=== PATIENT | female | born 1940 | race Caucasian/White ===

== ENCOUNTER 2025-02-21 11:36 | Inpatient (IN) | payer MEDICARE, MEDICAID, SELFPAY ==
[2025-02-21] VITALS (10 sets, daily range): BP systolic 109–156; BP diastolic 63–97; PULSE 58–99; RESP 14–90; TEMP 36.5–37.1; O2SAT 94–98; BMI 28.7
--- NOTE | 2025-02-21 11:39 | EKG_ITS ---
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
--- NOTE | 2025-02-21 11:49 | EDNOTE_ITS ---
<Statement entered by Dot Strickland MD - 03/09/25 17:41> I, Dot Strickland MD, have reviewed the history, exam, and assessment of the patient. I have evaluated the patient independently and agree with the plan of care documented by [ ]. All diagnostic studies were reviewed and discussed. I confirm the diagnosis as documented by the Resident. I was present during the Medical Decision Making for this patient. The patient's plan of care was created between myself and the Resident and consistent with our discussion of the patient's case. ED General RME/HPI General Chief complaint: Altered Mental Status Stated complaint: ALTERED Time Seen by Provider: 02/21/25 11:39 Arrival date/time: 02/21/25 11:36 Related Data Home Medications ?Medication ?Instructions ?Recorded ?Confirmed duloxetine 60 mg capsule,delayed 60 mg PO QDAY 2 02/28/22 release gabapentin 400 mg capsule 400 mg PO TID 02/02/2202/28 tizanidine 4 mg tablet 4 mg PO HS 02/02/22 02/28/22 Previous Rx's ?Medication ?Instructions ?Recorded ciprofloxacin HCl 500 mg tablet 500 mg PO BID #14 tabs 02/28/22 (Cipro) Allergies Allergy/AdvReac Type Severity Reaction Status Date / Time No Known Allergies Allergy Verified 01/14/21 18:26 ED Exam Narrative Physical exam: Physical Exam: GENERAL: Awake, answering some questions appropriately at times but appears to be debilitated and frail appearing HEENT: NC/AT. Dry mucosa. PERRLA/EOMI. CARDIO: Heart RRR, no obvious murmurs, no JVD. PULM: No coughing or visible SOB. Lungs CTA B/L. GI: Abdomen soft, NT/ND, +BS. SKIN/MSK/EXT: Tenderness to palpation on right and left lower extremity but no asymmetry, edema or erythema noted. No wounds/discoloration/rashes/edema/amputations noted. +Pedal pulses present B/L. NEURO: Oriented x2 (person, place but not purpose). Moves extremities x4, no focal neurologic deficits noted Course Quality Measures none Orders Category Date Time Status Bedside COVID-19 Antigen Test NOW Care 02/21/25 14:16 Active Bedside Influenza A&B Antigen Test NOW Care 02/21/25 14:17 Completed Bedside RSV Test NOW Care 02/21/25 14:16 Completed Senior User Experience Architect STAT Care 02/21/25 11:39 Active Continuous Pulse Oximetry STAT Care 02/21/25 11:39 Completed EKG (ED ONLY) *Do not use* NOW Care 02/21/25 11:39 Completed In and Out Catheter X1 Care 02/21/25 15:12 Completed In and Out Catheter X1PRN Care 02/21/25 11:39 Completed Insert IV NOW Care 02/21/25 11:39 Active Strict Intake and Output Routine Care 02/21/25 11:[address] head/brain wo con Stat Exams 02/21/25 16:18 Ordered CXRP [XR chest 1V portable] Stat Exams 02/21/25 13:14 Completed EKG (ED Only) Stat Exams 02/21/25 11:39 Draft ABG [Arterial Blood Gas] Stat Lab 02/21/25 16:19 Ordered Ammonia Stat Lab 02/21/25 11:57 Completed B-Type Natriuretic Peptide Stat Lab 02/21/25 11:57 Completed Blood Culture (Lab) Stat Lab 02/21/25 11:57 Received CBC Stat Lab 02/21/25 11:57 Completed Comprehensive Metabolic Panel Stat Lab 02/21/25 11:57 Completed LDH (Lactate Dehydrogenase) Stat Lab 02/21/25 11:57 Completed Lactate (Lactic Acid) Stat Lab 02/21/25 11:57 Completed Lipase Stat Lab 02/21/25 11:57 Completed Magnesium Stat Lab 02/21/25 11:57 Completed Partial Thromboplastin Time Stat Lab 02/21/25 11:57 Completed Phosphorous Stat Lab 02/21/25 11:57 Completed Procalcitonin Stat Lab 02/21/25 11:57 Completed Prothrombin Time with INR Stat Lab 02/21/25 11:57 Completed Troponin I Stat Lab 02/21/25 11:57 Completed Urinalysis, C/S if Indicated Stat Lab 02/21/25 12:15 Completed Urinalysis, C/S if Indicated Stat Lab 02/21/25 17:42 Received Lactulose Syrup [Enulose Syrup] Med 02/21/25 13:24 Discontinued 10 gm PO X1 ONE Oxygen Delivery NOW RT 02/21/25 11:39 Active Vital Signs Vital signs: Vital Signs Temperature 98.1 F 02/21/25 11:56 Pulse Rate 66 02/21/25 11:56 Respiratory Rate 20 02/21/25 11:56 Blood Pressure 153/97 H 02/21/25 11:56 Pulse Oximetry (%) 94 L 02/21/25 11:56 Oxygen Delivery Method Room Air 02/21/25 11:56 Discharge Plan Plan Patient Disposition: Xfer Skilled Nsg Fac (SNF) Prescriptions/Referrals Prescriptions/Med Rec: No Action tizanidine 4 mg tablet 4 mg PO HS Patient Comments: TAKE ONE TABLET BY MOUTH EVERY DAY AT BED TIME FOR MUSCLE SPASM gabapentin 400 mg capsule 400 mg PO TID Patient Comments: TAKE ONE CAPSULE BY MOUTH THREE TIMES DAILY duloxetine 60 mg capsule,delayed release(DR/EC) 60 mg PO QDAY Patient Comments: TAKE ONE CAPSULE BY MOUTH EVERY DAY ciprofloxacin HCl [Cipro] 500 mg tablet 500 mg PO BID Qty: 14 0RF Referrals: Marielle Albarado MD [Primary Care Provider] - In 1 week Problem List Clinical Impression: Altered mental status Patient/Caregiver Discharge Instructions Print Language: Maori Stand Alone Forms: Shira Award Info., Patient Portal Info Letter MDM Narrative MDM hospital course (for use when minimal MDM required): HPI: 84-year-old female with past medical history of critical access hospital [employer] [facility] ED ([phone]) coming from [place] [facility], chronic UTI, neuropathy, dementia not on any significant prescription medications for chronic medical problems per EMS presenting to the ER on 02/21 due to care profiler hand believing that she is looking worse than normal. Apparently patient started declining on Sunday 02/18 and has progressively worsened. Apparently she is normally alert oriented x 4 but she has become more drowsy and slow with her responses. Apparently, EMS providers state that her profiler hand believes that she is having another urinary tract infection. EMS stated that en route patient's vitals were stable other than mild bradycardia with a heart rate of 59, vitals were stable and bedside glucose was in the 160 range. On examination, please refer to the physical exam above; patient presents to the ER mildly hypertensive 153/97, heart rate of 66, respiratory rate of 20, afebrile satting 94 on room air. Pertinent lab findings included CBC without any concerning findings including no leukocytosis and no anemia. CMP did not show any overt electrolyte abnormalities, kidney function slightly reduced with CKD noted eGFR of 55, lactic acid of 1.8, mild elevation LFTs with AST 35, ALT 33 but bilirubin of 0.4 and alk phos of 73, troponin less than 0.020 and BNP of 24, lipase of 49. Initial urinalysis with clean-catch shows cloudy urine with proteinuria and hematuria but the sample is contaminated with squamous epithelial cells. EKG shows sinus bradycardia without any concerning ST changes and chest x-ray shows no lobar pneumonia. 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 SANYA Dong, DO PGY-2 Internal Medicine - GME Medication Administration(s) Medication Administration History Discontinued Medications Lactulose (Lactulose Syrup 20 Gm/30 Ml Udc) 10 gm PO X1 ONE; Protocol Stop: 02/21/25 13:25 Last Admin: 02/21/25 15:06 Dose: 10 gm Documented By: ESA
[2025-02-21 12:20] LABS: Lactate (Lactic Acid) 1.8 mMol/L (0.4-2.0)
[2025-02-21 12:23] LABS: Basophils # (Auto) 0.1 Thou/mm3 (0.0-0.2); Basophils % (Auto) 1 % (0-2.5); Eosinophils # (Auto) 0.0 Thou/mm3 (0.0-0.5); Eosinophils % (Auto) 0 % (0-10); Hematocrit 41.3 % (36.0-46.0); Hemoglobin 13.9 g/dL (12.0-16.0); Immature Granulocytes Auto 0.02 Thou/mm3 (0.00-0.00); Lymphocytes # (Auto) 1.5 Thou/mm3 (1.0-4.8); Lymphocytes % (Auto) 18 % (10-50); Mean Corpuscular HGB Conc 33.7 g/dl (31.0-37.0); Mean Corpuscular Hemoglobin 31.4 pg (25.0-35.0); Mean Corpuscular Volume 93 fL (80-100); Monocytes # (Auto) 0.3 Thou/mm3 (0.0-0.8); Monocytes % (Auto) 4 % (0-12); Neutrophils # (Auto) 6.6 Thou/mm3 (1.8-7.7); Neutrophils % (Auto) 78 % (37-80); Nucleated Red Blood Cell # 0.00 Thou/mm3 (0.00-0.00); Nucleated Red Blood Cell % 0 /100 WBC (0); Platelet Count 173 Thou/mm3 (140-440); RDW Standard Deviation 45.9 fL (36.4-46.3); Red Blood Count 4.43 Miln/mm3 (4.00-5.20); White Blood Count 8.5 Thou/mm3 (3.6-11.0)
[2025-02-21 12:24] LABS: Collection Type, Urine Clean Catch
[2025-02-21 12:37] LABS: Ammonia 37 uMol/L (11-32)
[2025-02-21 12:45] LABS: Alanine Aminotransferase 33 U/L (10-49); Albumin, Serum 4.3 gm/dL (3.4-4.8); Albumin/Globulin Ratio 1.8 (1.2-2.2); Alkaline Phosphatase 73 U/L (46-116); Anion Gap 10 (7-16); Aspartate Amino Transferase 35 U/L (0-34); BUN/Creatinine Ratio 22 Ratio (12-20); Bilirubin,Total 0.4 mg/dL (0.3-1.2); Blood Urea Nitrogen 22 mg/dL (9-23); Calcium 9.0 mg/dL (8.3-10.6); Calcium (Corrected) 9.0 mg/dL (8.5-10.1); Carbon Dioxide 21.5 mMol/L (20.0-31.0); Chloride 111 mMol/L (98-107); Creatinine (Component) 1.0 mg/dL (0.6-1.3); Estimated Creatinine Clearance 49.3 mL/min (>60); Globulin 2.4 gm/dL (2.3-3.5); Glucose 126 mg/dL (74-106); LDH (Lactate Dehydrogenase) 343 U/L (120-246); Lipase 49 U/L (12-53); Magnesium 1.9 mg/dL (1.6-2.6); Osmolality,Calculated 288 (275-295); Phosphorous 2.6 mg/dL (2.4-5.1); Potassium 4.8 mMol/L (3.4-5.1); Procalcitonin 0.09 ng/ml (0.0-0.49); Sodium 142 mMol/L (136-145); Total Protein 6.7 gm/dL (5.7-8.2); Troponin I < 0.020 ng/mL (0.0-0.045); eGFR 55 See Note
[2025-02-21 12:50] LABS: B-Type Natriuretic Peptide 24 pg/mL (0-100)
[2025-02-21 12:54] LABS: Bacteria,Urine 1+; Bilirubin,Urine Negative (Negative); Blood,Urine 2+ (Negative); Color,Urine Yellow (Lt Yel-Yel); Culture Indicated,Urine Contaminated; Glucose, Urine Negative (Negative); Hyaline Casts,Urine < 1 /hpf (0-1); Ketones,Urine Negative (Negative); Leukocyte Esterase,Urine Positive (Negative); Nitrite,Urine Negative (Negative); PH,Urine 6.0 (5.0-7.0); Protein,Urine 1+ (Neg - Trace); RBC,Urine 57 /hpf (0-3); Specific Gravity,Urine 1.021 (1.001-1.035); Squamous Epithelial Cell,Urine 11 /hpf (0-5); Urobilinogen,Urine Negative mg/dL (0.0-1.0); WBC,Urine 1100 /hpf (0-5)
[2025-02-21 13:06] LABS: Clarity,Urine Cloudy (Clear/Hazy)
--- NOTE | 2025-02-21 13:14 | XR_ITS ---
EXAMINATION: AP chest single view TECHNIQUE: AP portable upright chest single view Date and time: February 21, 2025, 1336 hours COMPARISON: February 09, 2023 INDICATIONS: Sepsis alert today. FINDINGS: Normal heart size No lobar pneumonia Minor atelectasis left base Severe osteopenia Old deformity right clavicle IMPRESSION: No lobar pneumonia
[2025-02-21 13:30] LABS: INR 1.0 (0.9-1.3); Partial Thromboplastin Time 24.8 Seconds (22.0-36.0); Prothrombin Time 10.6 Seconds (9.0-12.2)
[2025-02-21] MEDS: LACTULOSE SYRUP 20 GM/30 ML UDC 10 GM PO (15:06)
--- NOTE | 2025-02-21 16:18 | XR_ITS ---
Examination: CT brain head without contrast. 2-D sagittal coronal reconstructions Date and time of exam: February 21, 2025, 1827 hours, comparison July 23, 2022 INDICATIONS: Generalized weakness altered mental status 1 week, diagnosis acute encephalopathy CTDI: vol (mGy): 46.5 DLP: (mGycm): 985 Technique: Multiple CT axial sections of the brain have been obtained, 5 mm slice thickness. Contrast has not been administered. 2-D sagittal, coronal reconstructions have been obtained Low dose protocols were performed. One or more of the following dose reduction techniques were used; automated exposure control, adjustment of the mA and/or KV according to patient size, use of iterative reconstruction technique. Findings: No significant ventricular enlargement. Intra-axial or extra-axial hemorrhage density is not seen. No mass effect or midline shift Basal cisterns are not remarkable. Fourth ventricle is midline. Cranial vault intact. Impression: Negative for acute hemorrhage, mass effect or midline shift Advise clinical correlation and follow-up accordingly
[2025-02-21 17:55] LABS: Collection Type, Urine Catheter
--- NOTE | 2025-02-21 18:22 | EDNOTE_ITS ---
Emergency Room Addendum <Cris Haynes - Last Filed: 02/21/25 21:31> Addendum Narrative: 1800: Care assumed from Dr. Dong, attending Dr. Strickland, the previous shift emergency physician. Past medical, surgical, social and family history reviewed. Vitals and home medications reviewed. Results and treatment plan discussed. I will assume the care of the patient at this time and will follow the patient. Please refer to the emergency department record for history and examination from initial visit. Patient is an 84-year-old female with medical history notable for dementia to the emergency department with altered mental status. Vital signs and exam as listed. Prior provider evaluated patient. Ordered labs CT brain offered medication for symptom relief. Concern for intracranial hemorrhage, urinary tract infection, metabolic disturbance among others. Labs without acute hematologic or significant metabolic acute derangement, lactic acid normal, no significant transaminitis ammonia 37 she did receive a dose of lactulose in the hospital. Troponin is not elevated, urinalysis with evidence of turbidity, blood glucose trace positive, 129 red blood cells 2414 white blood cells squames no bacteria concern the patient has a urinary tract infection. Will treat. Of note patient has been receiving antibiotics as an outpatient. CT brain without any acute abnormalities. EKG performed today at 1258, notable for sinus rhythm, normal intervals, heart rate 58, nonspecific T wave changes, not irregular. Discussed with family, given patient has a urinary tract infection, resulting in weakness and confusion. Patient continues to have urinary symptoms despite being on antibiotics for the last few days and continues to feel generally weak. We will discuss admission with hospitalist service. 2127: Discussed case with the resident physician, attending Dr. Jurado from Hospitalist service regarding admission. Discussed patients ED course, exam findings, labs, and radiology results. The Hospitalist agrees to accept the patient for admission. RADIOLOGY RESULTS: [facility] Report Signed Patient: SYED MOON [facility]. Record#: [id number] Birthdate: 1940 Age/Sex: 84 / F Location: [facility] Attending Dr: Ordering Physician: Caio Dong MD Date of Service: 02/21/25 Procedure(s): CT head/brain wo con Accession Number(s): [id number] cc: Marielle Albarado MD; Pacheco Colvin MD; Caio Dong MD~ Examination: CT brain head without contrast. 2-D sagittal coronal reconstructions Date and time of exam: February 21, 2025, 1827 hours, comparison July 23, 2022 INDICATIONS: Generalized weakness altered mental status 1 week, diagnosis acute encephalopathy CTDI: vol (mGy): 46.5 DLP: (mGycm): 985 Technique: Multiple CT axial sections of the brain have been obtained, 5 mm slice thickness. Contrast has not been administered. 2-D sagittal, coronal reconstructions have been obtained Low dose protocols were performed. One or more of the following dose reduction techniques were used; automated exposure control, adjustment of the mA and/or KV according to patient size, use of iterative reconstruction technique. Findings: No significant ventricular enlargement. Intra-axial or extra-axial hemorrhage density is not seen. No mass effect or midline shift Basal cisterns are not remarkable. Fourth ventricle is midline. Cranial vault intact. Impression: Negative for acute hemorrhage, mass effect or midline shift Advise clinical correlation and follow-up accordingly Dictated By: Pacheco Colvin MD Signed By: <Electronically signed by Pacheco Colvin MD in OV> 02/21/25 1843 <Delia Wright MD - Last Filed: 02/21/25 21:28> Addendum Narrative: 1800: Care assumed from Dr. Dong, attending Dr. Strickland, the previous shift emergency physician. Past medical, surgical, social and family history reviewed. Vitals and home medications reviewed. Results and treatment plan discussed. I will assume the care of the patient at this time and will follow the patient. Please refer to the emergency department record for history and examination from initial visit. Patient is an 84-year-old female with medical history notable for dementia to the emergency department with altered mental status. Vital signs and exam as listed. Prior provider evaluated patient. Ordered labs CT brain offered medication for symptom relief. Concern for intracranial hemorrhage, urinary tract infection, metabolic disturbance among others. Labs without acute hematologic or significant metabolic acute derangement, lactic acid normal, no significant transaminitis ammonia 37 she did receive a dose of lactulose in the hospital. Troponin is not elevated, urinalysis with evidence of turbidity, blood glucose trace positive, 129 red blood cells 2414 white blood cells squames no bacteria concern the patient has a urinary tract infection. Will treat. Of note patient has been receiving antibiotics as an outpatient. CT brain without any acute abnormalities. EKG performed today at 1258, notable for sinus rhythm, normal intervals, heart rate 58, nonspecific T wave changes, not irregular. Discussed with family, given patient has a urinary tract infection, resulting in weakness and confusion we will discuss admission with hospitalist service RADIOLOGY RESULTS: [facility] Report Signed Patient: SYED MOON. Record#: [id number] Birthdate: 1940 Age/Sex: 84 / F Location: [facility] Attending Dr: Ordering Physician: Caio Dong MD Date of Service: 02/21/25 Procedure(s): CT head/brain wo con Accession Number(s): [id number] cc: Marielle Albarado MD; Pacheco Colvin MD; Caio Dong MD~ Examination: CT brain head without contrast. 2-D sagittal coronal reconstructions Date and time of exam: February 21, 2025, 1827 hours, comparison July 23, 2022 INDICATIONS: Generalized weakness altered mental status 1 week, diagnosis acute encephalopathy CTDI: vol (mGy): 46.5 DLP: (mGycm): 985 Technique: Multiple CT axial sections of the brain have been obtained, 5 mm slice thickness. Contrast has not been administered. 2-D sagittal, coronal reconstructions have been obtained Low dose protocols were performed. One or more of the following dose reduction techniques were used; automated exposure control, adjustment of the mA and/or KV according to patient size, use of iterative reconstruction technique. Findings: No significant ventricular enlargement. Intra-axial or extra-axial hemorrhage density is not seen. No mass effect or midline shift Basal cisterns are not remarkable. Fourth ventricle is midline. Cranial vault intact. Impression: Negative for acute hemorrhage, mass effect or midline shift Advise clinical correlation and follow-up accordingly Dictated By: Pacheco Colvin MD Signed By: <Electronically signed by Pacheco Colvin MD in OV> 02/21/25 [id number]
[2025-02-21 18:26] LABS: Amorphous Crystals,Urine Present (Absent); Bilirubin,Urine Negative (Negative); Blood,Urine 3+ (Negative); Color,Urine Yellow (Lt Yel-Yel); Culture Indicated,Urine Contaminated; Glucose, Urine Negative (Negative); Ketones,Urine Negative (Negative); Leukocyte Esterase,Urine Positive (Negative); Nitrite,Urine Negative (Negative); PH,Urine 6.0 (5.0-7.0); Protein,Urine 2+ (Neg - Trace); RBC,Urine 129 /hpf (0-3); Specific Gravity,Urine 1.023 (1.001-1.035); Squamous Epithelial Cell,Urine 16 /hpf (0-5); Urobilinogen,Urine Negative mg/dL (0.0-1.0); WBC,Urine 2414 /hpf (0-5)
--- NOTE | 2025-02-21 18:26 | PC.NURSE ---
PT TAKEN TO CT.
[2025-02-21 18:27] LABS: Clarity,Urine Turbid (Clear/Hazy)
[2025-02-21] MEDS: cefTRIAXone/D5w 1gm IV premix 1 GM/50 ML BAG IV (18:44)
[2025-02-21 19:15] LABS: Allen Test Performed/OK; Base Excess -1 (-3-3); HCO3 22 mEq/L (20-26); Inspired Oxygen, FIO2 21 %; O2 Saturation 96 % (91-98); PCO2 34 mmHg (32.0-48.0); PO2 87 mmHg (83-108); Puncture Site Right Radial; pH, Arterial 7.43 (7.35-7.45)
--- NOTE | 2025-02-21 22:06 | XR_ITS ---
Examination: Venous duplex lower extremity sonogram, bilateral. Date and time of exam: February 21, 2025, 10:14 p.m. INDICATIONS: Leg swelling and pain today Technique: Multiple sonographic images of the deep venous system have been obtained. B-mode/2-D grayscale imaging of vascular structures and Doppler spectral analysis (waveforms) and color performed Both legs are examined. Findings: Deep venous systems do not demonstrate abnormal echogenicity. Limited study secondary to patient size All visualized deep veins exhibit compressibility. All visualized deep veins exhibit augmentation. Impression: Limited study No DVT demonstrated
--- NOTE | 2025-02-21 22:26 | XR_ITS ---
Examination: CT abdomen and pelvis without contrast. Coronal 3-D reconstructions. Sagittal 2-D reconstructions. Date and time of exam: February 21, 2025, 1127 hours, comparison February 2023 INDICATIONS: Abdominal pain flank pain today CTDI: vol (mGy): 12.7 DLP: (mGycm): 742 Technique: Axial images of the abdomen have been obtained, 3 mm slice thickness Intravenous contrast material has not been administered. Low dose protocols were performed. One or more of the following dose reduction techniques were used; automated exposure control, adjustment of the mA and/or KV according to patient size, use of iterative reconstruction technique. Findings: Mild vascular congestion No visualized liver or splenic lesion Distended gallbladder No pancreatic or adrenal mass Moderate renal scar formation No renal or ureteral calculi, no hydronephrosis Aorta is not enlarged Normal appendix No bowel obstruction No diverticulitis Absent uterus Rectal wall is thickened Marked thickening of the urinary bladder wall with inflammatory change Severe osteopenia with severe chronic osteoporotic compression L1 Pelvic laxity IMPRESSION: Moderate renal scar formation, no hydronephrosis renal or ureteral calculi Normal appendix Severe cystitis pattern Rectal wall thickening, consider proctitis, clinical correlation advised, consider direct inspection
--- NOTE | 2025-02-21 22:43 | ESHP_ITS ---
<Statement entered by Ramon Akhtar MD - 02/23/25 06:34> I have personally seen and examined the patient, agree with residents assessment and plan Patient plan of care was discussed with the attending physician, Dr. Adrien Akhtar, PGY2 Documentation for date of: 02/21/25 HPI History of Present Illness Chief complaint: Altered mental status History of present illness: This patient is an 84-year-old female with a history of recurrent UTIs, dementia, dysphagia, and depression who presented to [facility] ED on 02/21 from [place] [facility] for altered mental status. Patient was admitted for management of acute encephalopathy. The patient is conserved by [facility] public guardian [phone] who notes that the patient is full code per their records. The patient is a poor historian who is only alert and oriented to person and location. The patient does not know the date/month/year nor why she is in the hospital. Most of the patient's responses are short yes or no. According to chart review, the patient was brought over by EMS for altered mental status that was thought to be secondary to UTI. Report from EMS and family member notes that the patient has been taking antibiotics, but they were concerned that it was not working as the patient seemed completely unresponsive. CT head and initial labs unremarkable for acute anatomic nor metabolic derangements that could explain this acute change in mental status. By the time hospitalist team came to evaluate the patient, this seems to have resolved. The patient's caregiver, Yoli, was called to provide further history. According to her, the patient was completely unresponsive when she was brought to the ED earlier in the day. Normally, the patient is alert and oriented to only self and place and often has difficulty with conversation, opting to have brief responses and will have difficulty remembering things given her dementia. The description of the patient's current mental status during evaluation by hospitalist team fits the patient's baseline per the patient's caregiver. Since no documents were available in the patient's chart from the patient's nursing facility, the nursing facility was contacted for further information and history. According to the nursing facility, the patient was not being treated for any urinary tract infection, but rather an upper respiratory infection with azithromycin and prednisone. Additionally, the patient was not having any changes in mental status until around 10:40 AM on 02/21 when the patient suddenly became difficult to arouse. Family member with then called 911 to get the patient transferred to the ED, which is not the facilities normal procedure, resulting in the lack of proper documents being brought to the ED. The patient denies fevers, chills, headaches, chest pain, shortness of breath, abdominal pain, and dysuria. ED course: Initial vitals significant for blood pressure of 153/97 and O2 saturation 94% on room air Initial labs significant for chloride 111, AST 35, and ammonia 37 CT head and chest x-ray unremarkable Patient was given lactulose x 1 and ceftriaxone x 1 Past Surgical History: Patient states that she has had a surgery in the past, but does not remember what that surgery was Current Medication(s): Pending med rec Allergies (w/ Reactions): NKDA Family History: Noncontributory Alcohol Intake: Patient denies Tobacco/Vape Use: Patient denies Other Drug Use: Patient denies Review of Systems Review of Systems Systems Reviewed: All systems reviewed, normal except as documented Exam Vital Signs Temp Pulse Resp BP Pulse Ox O2 Del Method O2 Flow Rate 98.2 F 66 20 144/73 H 97 Nasal Cannula 4 02/21/25 20:14 02/21/25 20:14 02/21/25 20:14 02/21/25 20:14 02/21/25 20:14 02/21/25 20:14 02/21/25 20:14 Narrative Exam Physical Exam: General: Alert, no acute distress. Skin: Warm, dry, intact. Head: Normocephalic, atraumatic. Eye: Normal conjunctiva, PERRL. Throat: Oral mucosa dry. No obvious lesions in oropharynx. Cardiovascular: Regular rate and rhythm, no murmur, +S1/S2. Respiratory: Lungs are clear to auscultation, respirations unlabored, no crackles, no wheezing. Gastrointestinal: Soft, diffusely tender to palpation, non-distended. No guarding or rebound tenderness. Tender to palpation of right flank. Extremities: Lower extremity bilaterally enlarged with 1+ edema and tenderness to palpation, no cyanosis, no clubbing. Neuro: No focal deficits observed. Conversant, moving all extremities. No overt cerebellar signs/incoordination. Psychiatric: Cooperative, flat affect. Results: Labs 02/22/25 04:49 02/22/25 04:49 Labs: Short CBC 02/21/25 Range/Units 11:57 WBC 8.5 (3.6-11.0) Thou/mm3 Hgb 13.9 (12.0-16.0) g/dL Hct 41.3 (36.0-46.0) % Plt Count 173 (140-440) Thou/mm3 BMP 02/21/25 11:57 Sodium 142 Potassium 4.8 Chloride 111 H Carbon Dioxide 21.5 BUN 22 Creatinine 1.0 Glucose 126 H Calcium 9.0 Cardiac Enzymes 02/21/25 Range/Units 11:57 Troponin I < 0.020 (0.0-0.045) ng/mL Liver Function 02/21/25 Range/Units 11:57 Total Bilirubin 0.4 (0.3-1.2) mg/dL AST 35 H (0-34) U/L ALT 33 (10-49) U/L Alkaline Phosphatase 73 (46-116) U/L Albumin 4.3 (3.4-4.8) gm/dL Urine 02/21/25 02/21/25 Range/Units 12:15 17:42 Urine Color Yellow Yellow (Lt Yel-Yel) Urine Clarity Cloudy A Turbid A (Clear/Hazy) Urine pH 6.0 6.0 (5.0-7.0) Ur Specific [place] 1.021 1.023 (1.001-1.035) Urine Protein 1+ A 2+ A (Neg - Trace) Urine Glucose (UA) Negative Negative (Negative) ABG Interpretation ABG results: 02/21/25 19:09 ABG pH 7.43 ABG pCO2 34 ABG pO2 87 ABG HCO3 22 ABG O2 Saturation 96 ABG Base Excess -1 Quality Measures Quality Measures VTE prophylaxis Advance care planning discussed with:: patient Medications Home Medications and Allergies Home Medications ?Medication ?Instructions ?Recorded ?Confirmed ?Type azithromycin 250 mg tablet 250 mg PO DAILY 02/22/25 History melatonin 5 mg capsule 5 mg PO HS 02/22/25 02/22/25 History ondansetron 4 mg disintegrating 4 mg PO Q12H PRN nause a and 02/22/25 02/22/25 History tablet vomiting prednisone 20 mg tablet 40 mg PO DAILY inflammation 12/17/25 12/17/25 History Allergies Allergy/AdvReac Type Severity Reaction Status Date / Time No Known Allergies Allergy Verified 01/14/21 18:26 Visit Medications Acetaminophen (Acetaminophen 325 Mg Tablet) 650 mg PO Q6H PRN PRN Reason: Fever >101.5 or pain 1-3 Stop: 03/23/25 22:26 Enoxaparin Sodium (Enoxaparin Sod Inj 40 Mg/0.4 Ml Syringe) 40 mg SC QDAY JOCY Stop: 03/08/25 08:59 Piperacillin Sod/Tazobactam (Sod 4.5 gm/ Sodium Chloride) 100 mls @ 200 mls/hr IV Q8HR JOCY; Protocol Stop: 02/28/25 22:44 Ondansetron HCl (Ondansetron Inj 2 Mg/Ml Inj 2 Ml) 4 mg IVP Q6H PRN; Protocol PRN Reason: NAUSEA OR VOMITING Stop: 03/23/25 22:26 Sennosides (Senna/Docusate Sod 1 Tab Tablet) 1 tab PO QDAY PRN; Protocol PRN Reason: CONSTIPATION Stop: 03/23/25 22:32 Discontinued Medications Ceftriaxone Sodium/Dextrose (Rocephin/D5w 1gm Iv Premix) 1 gm in 50 mls @ 100 mls/hr IV STAT STA Stop: 02/21/25 19:04 Last Infusion: 02/21/25 19:23 Dose: Infused Lactulose (Lactulose Syrup 20 Gm/30 Ml Udc) 10 gm PO X1 ONE; Protocol Stop: 02/21/25 13:25 Last Admin: 02/21/25 15:06 Dose: 10 gm Assessment & Plan Plan This patient is an 84-year-old female with a history of recurrent UTIs, dementia, dysphagia, and depression who presented to [facility] ED on 02/21 from [place] [facility] for altered mental status. Patient was admitted for management of acute encephalopathy. #Acute encephalopathy, likely 2/2 #Urinary tract infection #Rectal wall thickening #History of recurrent UTIs Patient noted to have acute change in mental status on 1040 on 02/21 where the patient became significantly less responsive as per her caregiver. Patient was brought to the ED where the patient continued to be significantly unresponsive. However, over the course of the day, the patient had return to baseline mental status of being oriented to person and place as verified by the patient's caregiver. Acute cephalopathy likely secondary to urinary tract infection given that the patient has recurrent UTIs. Diagnostic: Urinalysis collected twice on 02/21 noted to be significantly dirty, however samples were contaminated Patient noted to have diffuse abdominal pain including suprapubic pain and patient also noted to have significant right flank pain CT abdomen/pelvis on 02/21 shows moderate renal scar formation with no hydronephrosis, severe cystitis pattern, and rectal wall thickening Previous urine cultures grew primarily E. coli resistant to fluoroquinolones, tetracycline, and trimethoprim/sulfamethoxazole Blood culture collected 02/21, pending Urine culture ordered, pending Treatment: Zosyn 4.5 g every 8 hours (02/21?) De-escalate antibiotics once sensitivities return #Upper respiratory tract infection Per nursing staff member at patient's nursing facility, patient was recent prescribed azithromycin and prednisone for an upper respite tract infection. Patient denies any cough or shortness of breath on examination during admission. Diagnostic: Chest x-ray on 02/21 unremarkable Treatment: Supplemental oxygen via nasal cannula as needed Will treat with antibiotics being used for patient's UTI #Hyperammonemia #Elevated LFT Patient noted to have slightly elevated ammonia on presentation, possibly contributing to the patient's altered mental status. Additionally, the patient was noted to elevated AST on admission, but no other LFTs were noted to be elevated. Diagnostic: Ammonia on admission 37 [address] abdomen/pelvis on 02/21 negative for any cirrhosis or liver lesions Treatment: Patient was given lactulose 10 g x 1 in the ED Will reevaluate need for lactulose depending on patient's mental status #Conserved Patient is conserved by [facility] public guardian [phone] who makes the major medical decisions for this patient. Called the conservatorship regarding CODE STATUS, to which they mentioned that the patient is full code. Treatment: Reach out to [facility] public guardian if patient condition were to greatly decline for reevaluation of CODE STATUS #History of dementia #History of depression #History of dysphagia Patient does have a history of dementia, depression, and dysphagia. Patient does not appear to take any medications for these conditions, however pending final med rec. Per medical staff at the patient's nursing facility, the patient eats mechanically altered foods. Treatment: Dysphagia 2 diet, mechanically altered ordered Consider speech evaluation for further evaluation of dysphagia Will resume home meds once med rec is completed DVT Prophylaxis: Lovenox GI Prophylaxis: N/A Bowel: Sennakot PRN Diet: Dysphagia 2 Boyer: N/A Lines: PIV Antibiotics: Zosyn Code Status: FULL Reason for Hospitalization: Acute encephalopathy Other Barriers to Discharge: Blood & urine cultures Patient plan of care was discussed with the senior resident Dr. Akhtar (PGY-2) and attending physician Dr. Adrien Linton, PGY1 Attending Provider Attestation/Addendum I have seen and examined the patient. I was physically present for the carmona portions of the services provided including history, physical exam, diagnosis, treatment plans and orders. I agree with assessment and plan of care as documented by residents. After examination of the patient and review of the clinical data I feel that this patient needs admission to the hospital for further treatment/evaluation. Even though this this note was carefully revised there may still be minor errors in professional sports scout due to voice recognition software. Mitchel Jurado MD
[2025-02-21] MEDS: PIPER/TAZO INJ 4.5 GM in SODIUM CHLORIDE 0.9% (POP) 100 ML IV (23:41)
[2025-02-22] VITALS (7 sets, daily range): BP systolic 118–134; BP diastolic 64–82; PULSE 58–68; RESP 17–18; TEMP 36.1–36.8; O2SAT 94–96; BMI 27.3
[2025-02-22 05:40] LABS: Basophils # (Auto) 0.1 Thou/mm3 (0.0-0.2); Basophils % (Auto) 1 % (0-2.5); Eosinophils # (Auto) 0.1 Thou/mm3 (0.0-0.5); Eosinophils % (Auto) 1 % (0-10); Hematocrit 42.1 % (36.0-46.0); Hemoglobin 13.8 g/dL (12.0-16.0); Immature Granulocytes Auto 0.03 Thou/mm3 (0.00-0.00); Lymphocytes # (Auto) 3.5 Thou/mm3 (1.0-4.8); Lymphocytes % (Auto) 38 % (10-50); Mean Corpuscular HGB Conc 32.8 g/dl (31.0-37.0); Mean Corpuscular Hemoglobin 30.8 pg (25.0-35.0); Mean Corpuscular Volume 94 fL (80-100); Monocytes # (Auto) 1.2 Thou/mm3 (0.0-0.8); Monocytes % (Auto) 13 % (0-12); Neutrophils # (Auto) 4.5 Thou/mm3 (1.8-7.7); Neutrophils % (Auto) 48 % (37-80); Nucleated Red Blood Cell # 0.00 Thou/mm3 (0.00-0.00); Nucleated Red Blood Cell % 0 /100 WBC (0); Platelet Count 182 Thou/mm3 (140-440); RDW Standard Deviation 44.7 fL (36.4-46.3); Red Blood Count 4.48 Miln/mm3 (4.00-5.20); White Blood Count 9.3 Thou/mm3 (3.6-11.0)
[2025-02-22 05:56] LABS: Alanine Aminotransferase 25 U/L (10-49); Albumin, Serum 4.1 gm/dL (3.4-4.8); Albumin/Globulin Ratio 1.6 (1.2-2.2); Alkaline Phosphatase 66 U/L (46-116); Anion Gap 12 (7-16); Aspartate Amino Transferase 30 U/L (0-34); BUN/Creatinine Ratio 19 Ratio (12-20); Bilirubin,Total 0.6 mg/dL (0.3-1.2); Blood Urea Nitrogen 17 mg/dL (9-23); Calcium 9.0 mg/dL (8.3-10.6); Calcium (Corrected) 9.0 mg/dL (8.5-10.1); Carbon Dioxide 21.9 mMol/L (20.0-31.0); Chloride 112 mMol/L (98-107); Creatinine (Component) 0.9 mg/dL (0.6-1.3); Estimated Creatinine Clearance 53.7 mL/min (>60); Globulin 2.5 gm/dL (2.3-3.5); Glucose 82 mg/dL (74-106); Magnesium 1.8 mg/dL (1.6-2.6); Osmolality,Calculated 291 (275-295); Phosphorous 2.8 mg/dL (2.4-5.1); Potassium 3.9 mMol/L (3.4-5.1); Sodium 146 mMol/L (136-145); Total Protein 6.6 gm/dL (5.7-8.2); eGFR > 60 See Note
[2025-02-22] MEDS: PIPER/TAZO INJ 4.5 GM in SODIUM CHLORIDE 0.9% (POP) 100 ML IV (07:39)
[2025-02-22] MEDS: ENOXAPARIN SOD INJ 40 MG/0.4 ML SYRINGE SC (08:47)
--- NOTE | 2025-02-22 10:39 | ESPR_ITS ---
<Statement entered by Shahab Rojas MD - 03/02/25 09:14> I reviewed above note and agree with findings and plans. I have also personally examined the patient with medicine team and went over assessment and plan with medical team including wildlife biology internship and resident physician. <Statement entered by Liya Dee MD - 02/22/25 15:11> In summary: An 84-year-old female with a history of recurrent UTIs, dementia, dysphagia, and depression presented with altered mental status, likely due to a UTI. Her symptoms were consistent with previous episodes of confusion during UTIs. Urinalysis showed significant white blood cells, and CT imaging revealed severe cystitis and renal scarring. She was started on MEROPENEM due to her history of ESBL-producing organisms. Elevated ammonia and AST levels were noted, and lactulose was administered. Dysphagia was managed with a mechanically altered diet, and the patient's full code status was confirmed with her conservator. I?ve reviewed the note and agree with this assessment and plan, with the exceptions outlined above. I personally went over the labs, imaging, home medications, and prior records, and examined the patient. The case was also reviewed with the attending physician. Please note: this document was transcribed using voice recognition technology; minor inaccuracies may be present. Liya Dee DO PGY II Documentation for date of: 02/22/25 Subjective Subjective Interval history: Patient was seen at bedside this morning while eating breakfast. Patient is alert and oriented to person only. The patient has no complaints at this time and endorses no suprapubic tenderness or CVA tenderness. Patient's termite control representative grain unloader was seen at bedside later in the morning and reports that the patient's mentation has improved significantly since admission. Spoke with nursing staff at [facility], patient was started on Azithromycin and Prednisone on 02/21 for wheezing and upper respiratory infection. Exam Vital Signs Temp Pulse Resp BP Pulse Ox O2 Del Method O2 Flow Rate 97.0 F 63 17 130/74 95 Room Air 4 02/22/25 08:00 02/22/25 08:00 02/22/25 08:00 02/22/25 08:00 02/22/25 08:00 02/22/25 08:00 02/21/25 20:14 Narrative Exam Physical Exam General: Awake and in no acute distress. Conversational and non-toxic appearing. HEENT: Normocephalic, atraumatic, extraocular movements intact, pupils equal and reactive to light. Oral mucosa dry. No obvious lesions in oropharynx. Heart: Regular rate and rhythm, no murmurs, rubs or gallops. Lungs: Lungs are clear to auscultation, respirations unlabored, no crackles, no wheezing. Abdomen: Soft, nondistended, nontender. No guarding or rebound tenderness. No CVA tenderness. Neurologic: Alert and oriented x1, no gross neurological deficit, and patient able to move all 4 extremities. Extremities: Lower extremity bilaterally enlarged with 1+ edema and tenderness to palpation, no cyanosis, no clubbing. Skin: Warm and dry without rashes. Psychiatric: Cooperative, flat affect. Objective Labs 02/22/25 04:49 02/22/25 04:49 Labs: Laboratory Results - last 24 hr 02/21/25 02/21/25 02/21/25 11:57 12:15 17:42 WBC 8.5 RBC 4.43 Hgb 13.9 Hct 41.3 MCV 93 MCH 31.4 MCHC 33.7 RDW Std Deviation 45.9 Plt Count 173 Neut % (Auto) 78 Lymph % (Auto) 18 [place] % (Auto) 4 Eos % (Auto) 0 Baso % (Auto) 1 Neut # (Auto) 6.6 Lymph # (Auto) 1.5 [place] # (Auto) 0.3 Eos # (Auto) 0.0 Baso # (Auto) 0.1 Immature Gran # (Auto) 0.02 H Absolute Nucleated RBC 0.00 Immature Gran % 0 Nucleated RBC % 0 PT 10.6 INR 1.0 APTT 24.8 Puncture Site ABG pH ABG pCO2 ABG pO2 ABG HCO3 ABG O2 Saturation ABG Base Excess FiO2 Sodium 142 Potassium 4.8 Chloride 111 H Carbon Dioxide 21.5 Anion Gap 10 BUN 22 Creatinine 1.0 Estim Creat Clear Calc 49.3 L eGFR 55 L BUN/Creatinine Ratio 22 H Glucose 126 H Calculated Osmolality 288 Lactic Acid 1.8 Calcium 9.0 Corrected Calcium 9.0 Phosphorus 2.6 Magnesium 1.9 Total Bilirubin 0.4 AST 35 H ALT 33 Alkaline Phosphatase 73 Ammonia 37 H Lactate Dehydrogenase 343 H Troponin I < 0.020 B-Natriuretic Peptide 24 Total Protein 6.7 Albumin 4.3 Globulin 2.4 Albumin/Globulin Ratio 1.8 Lipase 49 Procalcitonin 0.09 Ur Collection Type Clean Catch Catheter Urine Color Yellow Yellow Urine Clarity Cloudy A Turbid A Urine pH 6.0 6.0 Ur Specific [place] 1.021 1.023 Urine Protein 1+ A 2+ A Urine Glucose (UA) Negative Negative Urine Ketones Negative Negative Urine Blood 2+ A 3+ A Urine Nitrite Negative Negative Urine Bilirubin Negative Negative Urine Urobilinogen (Auto) Negative Negative Ur Leukocyte Esterase Positive Positive Urine RBC 57 H 129 H Urine WBC 1100 H 2414 H Ur Squamous Epith Cells 11 H 16 H Amorphous Crystals Present A Urine Bacteria 1+ A None Hyaline Casts < 1 Ur Culture Indicated? Contaminated Contaminated 02/21/25 02/22/25 19:09 04:49 WBC 9.3 RBC 4.48 Hgb 13.8 Hct 42.1 MCV 94 MCH 30.8 MCHC 32.8 RDW Std Deviation 44.7 Plt Count 182 Neut % (Auto) 48 Lymph % (Auto) 38 [place] % (Auto) 13 H Eos % (Auto) 1 Baso % (Auto) 1 Neut # (Auto) 4.5 Lymph # (Auto) 3.5 [place] # (Auto) 1.2 H Eos # (Auto) 0.1 Baso # (Auto) 0.1 Immature Gran # (Auto) 0.03 H Absolute Nucleated RBC 0.00 Immature Gran % 0 Nucleated RBC % 0 PT INR APTT Puncture Site Right Radial ABG pH 7.43 ABG pCO2 34 ABG pO2 87 ABG HCO3 22 ABG O2 Saturation 96 ABG Base Excess -1 FiO2 21 Sodium 146 H Potassium 3.9 D Chloride 112 H Carbon Dioxide 21.9 Anion Gap 12 BUN 17 Creatinine 0.9 Estim Creat Clear Calc 53.7 L eGFR > 60 BUN/Creatinine Ratio 19 Glucose 82 Calculated Osmolality 291 Lactic Acid Calcium 9.0 Corrected Calcium 9.0 Phosphorus 2.8 Magnesium 1.8 Total Bilirubin 0.6 AST 30 ALT 25 Alkaline Phosphatase 66 Ammonia Lactate Dehydrogenase Troponin I B-Natriuretic Peptide Total Protein 6.6 Albumin 4.1 Globulin 2.5 Albumin/Globulin Ratio 1.6 Lipase Procalcitonin Ur Collection Type Urine Color Urine Clarity Urine pH Ur Specific [place] Urine Protein Urine Glucose (UA) Urine Ketones Urine Blood Urine Nitrite Urine Bilirubin Urine Urobilinogen (Auto) Ur Leukocyte Esterase Urine RBC Urine WBC Ur Squamous Epith Cells Amorphous Crystals Urine Bacteria Hyaline Casts Ur Culture Indicated? ABG Interpretation ABG results: 12/16/25 19:09 ABG pH 7.43 ABG pCO2 34 ABG pO2 87 ABG HCO3 22 ABG O2 Saturation 96 ABG Base Excess -1 Quality Measures Quality Measures VTE prophylaxis Advance care planning discussed with:: patient and other Assessment & Plan Assessment Current Active Medications: Generic Name Dose Route Start Last Admin Trade Name Freq PRN Reason Stop Dose Admin Acetaminophen 650 mg 02/21/25 22:27 Acetaminophen 325 Mg Tablet PO 03/23/25 22:26 Q6H PRN Fever >101.5 or pain 1-3 Enoxaparin Sodium 40 mg 02/22/25 09:00 02/22/25 08:47 Enoxaparin Sod Inj 40 Mg/0.4 Ml Syringe SC 03/08/25 08:59 40 mg QDAY JOCY Administration Meropenem 1,000 mg/ Sodium 50 mls @ 100 mls/hr 02/22/25 14:00 Chloride IV 03/01/25 13:59 Q8HR JOCY Ondansetron HCl 4 mg 02/21/25 22:27 Ondansetron Inj 2 Mg/Ml Inj 2 Ml IVP 03/23/25 22:26 Q6H PRN NAUSEA OR VOMITING Protocol Sennosides 1 tab 02/21/25 22:33 Senna/Docusate Sod 1 Tab Tablet PO 03/23/25 22:32 QDAY PRN CONSTIPATION Protocol Plan 84-year-old female with a history of recurrent UTIs, dementia, dysphagia, and depression who presented from [place] for altered mental status, admitted for acute encephalopathy likely secondary to UTI. #Acute encephalopathy, likely secondary to #Urinary tract infection #Rectal wall thickening #History of recurrent UTIs - Patient had acute change in mental status where the patient became less responsive as per her caregiver. - Caregiver notes a prior history of recurrent UTIs, with confusion occurring in the past during UTI episodes. - Urinalysis collected twice on 02/21, both specimens were noted to be contaminated, but significant white blood cells were observed, ranging from 1000 to 2000. - CT abdomen/pelvis (02/21) shows moderate renal scar formation with no hydronephrosis, severe cystitis pattern, and rectal wall thickening. - Previous urine culture in 12/2018 identified ESBL-producing organisms. Plan: * Discontinued Zosyn 4.5 g and started Meropenem 1000 mg IV Q8H due to the patient's prior history of ESBL. * Blood culture pending. * Urine culture pending. * Close monitoring of mental status and urinary symptoms. Continue to assess for further signs of infection or sepsis. #Upper respiratory tract infection - Per nursing staff member at patient's nursing facility, patient was recent prescribed azithromycin 250 PO daily and prednisone 40 mg daily for an upper respiratory tract infection with wheezing. - CXR 02/21 unremarkable. Plan: * Supplemental oxygen via nasal cannula as needed. * Will treat with antibiotics being used for patient's UTI. #Hyperammonemia #Elevated LFT - Patient noted to have slightly elevated ammonia on presentation, possibly contributing to the patient's altered mental status. - Additionally, the patient was noted to elevated AST on admission, but no other LFTs were noted to be elevated. - Ammonia on admission 37. - AST 35 on admission. - CT abdomen/pelvis on 02/21 negative for any cirrhosis or liver lesions Plan: * Patient was given lactulose 10 g x 1 in the ED. * Will reevaluate need for lactulose depending on patient's mental status. #Conserved - Patient is conserved by [facility] guardian [phone] who makes the major medical decisions for this patient. - Called the conservatorship regarding CODE STATUS, to which they mentioned that the patient is full code. Plan: * Reach out to [facility] guardian if patient condition were to greatly decline for reevaluation of CODE STATUS #History of dementia #History of depression #History of dysphagia - Patient does have a history of dementia, depression, and dysphagia. - Patient does not appear to take any medications for these conditions. - Per medical staff at the patient's nursing facility, the patient eats mechanically altered foods. Plan: * Dysphagia 2 diet, mechanically altered ordered. * Consider speech evaluation for further evaluation of dysphagia. Health Maintenance Disposition: med surg DVT prophylaxis: Lovenox GI prophylaxis: N/A Diet: Dysphagia 2 Boyer: N/A Lines: Peripheral IV CODE STATUS: FULL --- Patient plan of care was discussed with the senior resident, Dr. Dee, and attending physician, Dr. Rojas . Carlitos Ordonez, DO PGY-1
--- NOTE | 2025-02-22 13:46 | PC.SS ---
Rocío Fuentes is a 84 year old female admitted to Pyelonephritis. Pt is a jail resident og [facility]. Pt is conserved and [place] of public guardian is Eduardo [phone]. Pt at baseline is assistance with ambulation. Pt can sit in a wheelchair. Per Angela at [facility] Lizzeth (dtAzul) and Yoli are not ablew to make any decisions for pt. Pt will return to their facility when ready. Pt requires 3MN and can DC on 02/24. SS will remain available for any additional needs. ?
[2025-02-22] MEDS: MEROPENEM INJ 1,000 MG in SODIUM CHLORIDE 0.9% (Popper) 50 ML 100 MG IV ×2 (14:20→21:11)
--- NOTE | 2025-02-22 16:31 | PC.NURSE ---
Daughter Lizzeth approached this nurse and verbalized that she would prefer patient be discharged to [facility] instead of returning to previous facility.
--- NOTE | 2025-02-22 18:39 | PC.PT ---
PT eval only. Patient is at her PLOF.
[2025-02-23] VITALS (8 sets, daily range): BP systolic 109–147; BP diastolic 63–83; PULSE 52–79; RESP 16–95; TEMP 36.1–36.8; O2SAT 94–97
[2025-02-23] MEDS: MEROPENEM INJ 1,000 MG in SODIUM CHLORIDE 0.9% (Popper) 50 ML 100 MG IV ×3 (05:39→21:43)
[2025-02-23 05:58] LABS: Basophils # (Auto) 0.1 Thou/mm3 (0.0-0.2); Basophils % (Auto) 1 % (0-2.5); Eosinophils # (Auto) 0.2 Thou/mm3 (0.0-0.5); Eosinophils % (Auto) 2 % (0-10); Hematocrit 38.2 % (36.0-46.0); Hemoglobin 13.1 g/dL (12.0-16.0); Immature Granulocytes Auto 0.04 Thou/mm3 (0.00-0.00); Lymphocytes # (Auto) 3.7 Thou/mm3 (1.0-4.8); Lymphocytes % (Auto) 38 % (10-50); Mean Corpuscular HGB Conc 34.3 g/dl (31.0-37.0); Mean Corpuscular Hemoglobin 31.4 pg (25.0-35.0); Mean Corpuscular Volume 92 fL (80-100); Monocytes # (Auto) 0.9 Thou/mm3 (0.0-0.8); Monocytes % (Auto) 9 % (0-12); Neutrophils # (Auto) 4.9 Thou/mm3 (1.8-7.7); Neutrophils % (Auto) 50 % (37-80); Nucleated Red Blood Cell # 0.00 Thou/mm3 (0.00-0.00); Nucleated Red Blood Cell % 0 /100 WBC (0); Platelet Count 186 Thou/mm3 (140-440); RDW Standard Deviation 44.4 fL (36.4-46.3); Red Blood Count 4.17 Miln/mm3 (4.00-5.20); White Blood Count 9.7 Thou/mm3 (3.6-11.0)
[2025-02-23 06:31] LABS: Alanine Aminotransferase 21 U/L (10-49); Albumin, Serum 3.9 gm/dL (3.4-4.8); Albumin/Globulin Ratio 1.7 (1.2-2.2); Alkaline Phosphatase 64 U/L (46-116); Anion Gap 11 (7-16); Aspartate Amino Transferase 29 U/L (0-34); BUN/Creatinine Ratio 21 Ratio (12-20); Bilirubin,Total 0.6 mg/dL (0.3-1.2); Blood Urea Nitrogen 19 mg/dL (9-23); Calcium 8.8 mg/dL (8.3-10.6); Calcium (Corrected) 8.9 mg/dL (8.5-10.1); Carbon Dioxide 22.2 mMol/L (20.0-31.0); Chloride 111 mMol/L (98-107); Creatinine (Component) 0.9 mg/dL (0.6-1.3); Estimated Creatinine Clearance 52.7 mL/min (>60); Globulin 2.3 gm/dL (2.3-3.5); Glucose 81 mg/dL (74-106); Magnesium 1.6 mg/dL (1.6-2.6); Osmolality,Calculated 288 (275-295); Phosphorous 2.9 mg/dL (2.4-5.1); Potassium 3.8 mMol/L (3.4-5.1); Sodium 144 mMol/L (136-145); Total Protein 6.2 gm/dL (5.7-8.2); eGFR > 60 See Note
[2025-02-23] MEDS: Magnesium Sulfate 4 GM Ivpb 4 GM/50 ML BAG IV (08:36)
[2025-02-23] MEDS: ENOXAPARIN SOD INJ 40 MG/0.4 ML SYRINGE SC (08:36)
[2025-02-23] MEDS: PHENAZOPYRIDINE HCL 100 MG TABLET PO ×2 (11:47→16:44)
--- NOTE | 2025-02-23 15:02 | ESPR_ITS ---
<Statement entered by Liya Dee MD - 02/23/25 15:09> In summary: An 84-year-old female with a history of recurrent UTIs, dementia, dysphagia, and depression presented with altered mental status, likely due to a UTI. Her symptoms were consistent with previous episodes of confusion during UTIs. Urinalysis showed significant white blood cells, and CT imaging revealed severe cystitis and renal scarring. She was started on MEROPENEM due to her history of ESBL-producing organisms. Elevated ammonia and AST levels were noted, and lactulose was administered. Dysphagia was managed with a mechanically altered diet, and the patient's full code status was confirmed with her conservator. Vitals and labs are stable otherwise. She had positive MRSA nasal swap but 48Hr blood cx are negative. Will d/c with MUPERICON. I?ve reviewed the note and agree with this assessment and plan, with the exceptions outlined above. I personally went over the labs, imaging, home medications, and prior records, and examined the patient. The case was also reviewed with the attending physician. Please note: this document was transcribed using voice recognition technology; minor inaccuracies may be present. Liya Dee DO PGY II Documentation for date of: 02/23/25 Subjective Subjective Interval history: No acute events overnight. The patient was seen at the bedside this morning, remaining alert and oriented to self and place. The patient reports no complaints at this time. Spoke with the it infrastructure architect at the bedside regarding the change in antibiotics to Meropenem given the patient's history of an ESBL UTI. Patient continues to have a cough, but the antibiotics for the UTI will also cover for other bacterial infections, though a viral etiology is more likely as the patient has no elevated white count or fevers. The patient's last bowel movement was yesterday. The patient's daughter and caretakers had questions about the patient's code status today. IM team contacted the conservator to confirm that the code status is full code. The family expressed concerns regarding the patient's care in the current SNF, specifically about being left in diapers for hours, which they believe may be contributing to recurrent UTIs. Touched based with the transition social worker about the family's concerns. Any changes in medical management or placement will need approval from the [facility]. Exam Vital Signs Temp Pulse Resp BP Pulse Ox O2 Del Method O2 Flow Rate 97.4 F 52 L 18 119/63 96 Room Air 4 02/23/25 12:00 02/23/25 12:00 02/23/25 12:00 02/23/25 12:00 02/23/25 12:00 02/23/25 12:00 02/21/25 20:14 Narrative Exam Physical Exam General: Awake and in no acute distress. Conversational and non-toxic appearing. HEENT: Normocephalic, atraumatic, extraocular movements intact, pupils equal and reactive to light. Oral mucosa dry. No obvious lesions in oropharynx. Heart: Regular rate and rhythm, no murmurs, rubs or gallops. Lungs: Lungs are clear to auscultation, respirations unlabored, no crackles, no wheezing. Abdomen: Soft, nondistended, nontender. No guarding or rebound tenderness. No CVA tenderness. Neurologic: Alert and oriented x1, no gross neurological deficit, and patient able to move all 4 extremities. Extremities: Lower extremity bilaterally enlarged with 1+ edema and tenderness to palpation, no cyanosis, no clubbing. Skin: Warm and dry without rashes. Psychiatric: Cooperative, flat affect. Objective Labs 02/23/25 05:15 02/23/25 05:15 Labs: Laboratory Results - last 24 hr 02/23/25 05:15 WBC 9.7 RBC 4.17 Hgb 13.1 Hct 38.2 MCV 92 MCH 31.4 MCHC 34.3 RDW Std Deviation 44.4 Plt Count 186 Neut % (Auto) 50 Lymph % (Auto) 38 [place] % (Auto) 9 Eos % (Auto) 2 Baso % (Auto) 1 Neut # (Auto) 4.9 Lymph # (Auto) 3.7 [place] # (Auto) 0.9 H Eos # (Auto) 0.2 Baso # (Auto) 0.1 Immature Gran # (Auto) 0.04 H Absolute Nucleated RBC 0.00 Immature Gran % 0 Nucleated RBC % 0 Sodium 144 Potassium 3.8 Chloride 111 H Carbon Dioxide 22.2 Anion Gap 11 BUN 19 Creatinine 0.9 Estim Creat Clear Calc 52.7 L eGFR > 60 BUN/Creatinine Ratio 21 H Glucose 81 Calculated Osmolality 288 Calcium 8.8 Corrected Calcium 8.9 Phosphorus 2.9 Magnesium 1.6 Total Bilirubin 0.6 AST 29 ALT 21 Alkaline Phosphatase 64 Total Protein 6.2 Albumin 3.9 Globulin 2.3 Albumin/Globulin Ratio 1.7 ABG Interpretation ABG results: 02/21/25 19:09 ABG pH 7.43 ABG pCO2 34 ABG pO2 87 ABG HCO3 22 ABG O2 Saturation 96 ABG Base Excess -1 Quality Measures Quality Measures VTE prophylaxis Advance care planning discussed with:: patient Assessment & Plan Assessment Current Active Medications: Generic Name Dose Route Start Last Admin Trade Name Freq PRN Reason Stop Dose Admin Acetaminophen 650 mg 02/21/25 22:27 Acetaminophen 325 Mg Tablet PO 03/23/25 22:26 Q6H PRN Fever >101.5 or pain 1-3 Enoxaparin Sodium 40 mg 02/22/25 09:00 02/23/25 08:36 Enoxaparin Sod Inj 40 Mg/0.4 Ml Syringe SC 03/08/25 08:59 40 mg QDAY JOCY Administration Meropenem 1,000 mg/ Sodium 50 mls @ 100 mls/hr 02/22/25 14:00 02/23/25 13:18 Chloride IV 03/01/25 13:59 100 mls/hr Q8HR JOCY Administration Ondansetron HCl 4 mg 02/21/25 22:27 Ondansetron Inj 2 Mg/Ml Inj 2 Ml IVP 03/23/25 22:26 Q6H PRN NAUSEA OR VOMITING Protocol Phenazopyridine HCl 100 mg 02/23/25 12:00 02/23/25 11:47 Phenazopyridine Hcl 100 Mg Tablet PO 02/25/25 08:01 100 mg TIDWM JOCY Administration Sennosides 1 tab 02/21/25 22:33 Senna/Docusate Sod 1 Tab Tablet PO 03/23/25 22:32 QDAY PRN CONSTIPATION Protocol Plan 84-year-old female with a history of recurrent UTIs, dementia, dysphagia, and depression who presented from [facility] for altered mental status, admitted for acute encephalopathy likely secondary to UTI. #Acute encephalopathy, likely secondary to #Urinary tract infection #Rectal wall thickening #History of recurrent UTIs - Patient had acute change in mental status where the patient became less responsive as per her caregiver. - Caregiver notes a prior history of recurrent UTIs, with confusion occurring in the past during UTI episodes. - Urinalysis collected twice on 02/21, both specimens were noted to be contaminated, but significant white blood cells were observed, ranging from 1000 to 2000. - CT abdomen/pelvis (02/21) shows moderate renal scar formation with no hydronephrosis, severe cystitis pattern, and rectal wall thickening. - Previous urine culture in 12/2018 identified ESBL-producing organisms. Plan: * Discontinued Zosyn 4.5 g and started Meropenem 1000 mg IV Q8H due to the patient's prior history of ESBL. * Blood culture pending, preliminary results are negative. * Urine culture pending. * Close monitoring of mental status and urinary symptoms. Continue to assess for further signs of infection or sepsis. #Upper respiratory tract infection - Per nursing staff member at patient's nursing facility, patient was recent prescribed azithromycin 250 PO daily and prednisone 40 mg daily for an upper respiratory tract infection with wheezing. - CXR 02/21 unremarkable. - Likely viral in etiology as patient has no leukocytosis or fevers. Plan: * Supplemental oxygen via nasal cannula as needed. * Will treat with antibiotics being used for patient's UTI. #Hyperammonemia #Elevated LFT - Patient noted to have slightly elevated ammonia on presentation, possibly contributing to the patient's altered mental status. - Additionally, the patient was noted to elevated AST on admission, but no other LFTs were noted to be elevated. - Ammonia on admission 37. - AST 35 on admission. - CT abdomen/pelvis on 02/21 negative for any cirrhosis or liver lesions Plan: * Patient was given lactulose 10 g x 1 in the ED. * Will reevaluate need for lactulose depending on patient's mental status. #Conserved - Patient is conserved by [facility] public guardian [phone], Eduardo Bill, who makes the major medical decisions for this patient. - Called the conservatorship regarding CODE STATUS, to which they mentioned that the patient is full code. Plan: * Reach out to [facility] public guardian if patient condition were to greatly decline for reevaluation of CODE STATUS #History of dementia #History of depression #History of dysphagia - Patient does have a history of dementia, depression, and dysphagia. - Patient does not appear to take any medications for these conditions. - Per medical staff at the patient's nursing facility, the patient eats mechanically altered foods. Plan: * Dysphagia 2 diet, mechanically altered ordered. * Consider speech evaluation for further evaluation of dysphagia. Health Maintenance Disposition: med surg, meropenem for UTI, pending cultures DVT prophylaxis: Lovenox GI prophylaxis: N/A Diet: Dysphagia 2 [place]: N/A Lines: Peripheral IV CODE STATUS: FULL --- Patient plan of care was discussed with the senior resident, Dr. Dee, and attending physician, Dr. Jurado . Carlitos Ordonez DO PGY-1 Attending Provider Attestation/Addendum I have seen and examined the patient. I was physically present for the carmona portions of the services provided including history, physical exam, diagnosis, treatment plans and orders. I agree with assessment and plan of care as documented by residents. Even though this this note was carefully revised there may still be minor errors in national dedicated truck driver due to voice recognition software. Mitchel Jurado MD
--- NOTE | 2025-02-23 15:48 | PC.SS ---
Follow up note: SS received a call from staff indicating that family wants patient moved to another facility and they prefer [facility]. SS spoke to Public Guardian's office and spoke to case filler, Eduardo @ [phone]. She states the [facility] office of public guardian is the main decision maker. They will decide if patient will be moved from one facility to another. Efraator has no concerns about [facility] and as of now, patient will return. Efraator states family is to not receive any medical updates or should be speaking with physician team or calling meetings. Conservator states if this continues she would like to know as this is interfering with medical care. SS updated that family and friends at bedside have called SS multiple times and staff to clarify code status and wanting updates from physician team. SS updated staff. Efraator also spoke to physician team. SS will make a change on demographics.
[2025-02-24] VITALS (7 sets, daily range): BP systolic 128–148; BP diastolic 64–79; PULSE 66–77; RESP 16–97; TEMP 36.3–37; O2SAT 91–95; BMI 27.3
[2025-02-24] MEDS: MEROPENEM INJ 1,000 MG in SODIUM CHLORIDE 0.9% (Popper) 50 ML 100 MG IV ×3 (05:13→23:03)
[2025-02-24 06:10] LABS: Basophils # (Auto) 0.1 Thou/mm3 (0.0-0.2); Basophils % (Auto) 1 % (0-2.5); Eosinophils # (Auto) 0.2 Thou/mm3 (0.0-0.5); Eosinophils % (Auto) 3 % (0-10); Hematocrit 39.0 % (36.0-46.0); Hemoglobin 13.3 g/dL (12.0-16.0); Immature Granulocytes Auto 0.03 Thou/mm3 (0.00-0.00); Lymphocytes # (Auto) 2.9 Thou/mm3 (1.0-4.8); Lymphocytes % (Auto) 31 % (10-50); Mean Corpuscular HGB Conc 34.1 g/dl (31.0-37.0); Mean Corpuscular Hemoglobin 31.3 pg (25.0-35.0); Mean Corpuscular Volume 92 fL (80-100); Monocytes # (Auto) 0.8 Thou/mm3 (0.0-0.8); Monocytes % (Auto) 9 % (0-12); Neutrophils # (Auto) 5.3 Thou/mm3 (1.8-7.7); Neutrophils % (Auto) 57 % (37-80); Nucleated Red Blood Cell # 0.00 Thou/mm3 (0.00-0.00); Nucleated Red Blood Cell % 0 /100 WBC (0); Platelet Count 215 Thou/mm3 (140-440); RDW Standard Deviation 44.8 fL (36.4-46.3); Red Blood Count 4.25 Miln/mm3 (4.00-5.20); White Blood Count 9.3 Thou/mm3 (3.6-11.0)
[2025-02-24 06:32] LABS: Alanine Aminotransferase 21 U/L (10-49); Albumin, Serum 3.9 gm/dL (3.4-4.8); Albumin/Globulin Ratio 1.6 (1.2-2.2); Alkaline Phosphatase 66 U/L (46-116); Anion Gap 10 (7-16); Aspartate Amino Transferase 27 U/L (0-34); BUN/Creatinine Ratio 16 Ratio (12-20); Bilirubin,Total 0.6 mg/dL (0.3-1.2); Blood Urea Nitrogen 13 mg/dL (9-23); Calcium 8.6 mg/dL (8.3-10.6); Calcium (Corrected) 8.7 mg/dL (8.5-10.1); Carbon Dioxide 22.4 mMol/L (20.0-31.0); Chloride 110 mMol/L (98-107); Creatinine (Component) 0.8 mg/dL (0.6-1.3); Estimated Creatinine Clearance 59.2 mL/min (>60); Globulin 2.4 gm/dL (2.3-3.5); Glucose 85 mg/dL (74-106); Magnesium 2.2 mg/dL (1.6-2.6); Osmolality,Calculated 282 (275-295); Phosphorous 2.4 mg/dL (2.4-5.1); Potassium 4.0 mMol/L (3.4-5.1); Sodium 142 mMol/L (136-145); Total Protein 6.3 gm/dL (5.7-8.2); eGFR > 60 See Note
[2025-02-24] MEDS: PHENAZOPYRIDINE HCL 100 MG TABLET PO ×3 (08:48→17:38)
[2025-02-24] MEDS: ENOXAPARIN SOD INJ 40 MG/0.4 ML SYRINGE SC (08:49)
--- NOTE | 2025-02-24 10:36 | ESPR_ITS ---
<Statement entered by Liya Dee MD - 02/24/25 18:10> In summary: An 84-year-old female with a history of recurrent UTIs, dementia, dysphagia, and depression presented with altered mental status, likely due to a UTI. Her symptoms were consistent with previous episodes of confusion during UTIs. Urinalysis showed significant white blood cells, and CT imaging revealed severe cystitis and renal scarring. She was started on MEROPENEM due to her history of ESBL-producing organisms. Elevated ammonia and AST levels were noted, and lactulose was administered. Dysphagia was managed with a mechanically altered diet, and the patient's full code status was confirmed with her conservator. Vitals and labs are stable otherwise. She had positive MRSA nasal swap but 48Hr blood cx are negative. Will d/c with MUPERICON. I?ve reviewed the note and agree with this assessment and plan, with the exceptions outlined above. I personally went over the labs, imaging, home medications, and prior records, and examined the patient. The case was also reviewed with the attending physician. Please note: this document was transcribed using voice recognition technology; minor inaccuracies may be present. Liya Dee DO Documentation for date of: 02/24/25 Subjective Subjective Interval history: No acute events overnight. The patient was seen at the bedside this morning. She continues to have a non-productive cough and has been started on Robitussin for symptom relief. The patient remains on Meropenem as the urine culture is still pending. Nasal swab was positive for MRSA, but blood cultures were negative. Will discharge patient with mupirocin at time of discharge. CT abdomen and pelvis revealed bladder prolapse, which may be contributing to her recurrent UTIs. Follow-up with an urologist is recommended outpatient. Exam Vital Signs Temp Pulse Resp BP Pulse Ox O2 Del Method O2 Flow Rate 97.7 F 70 18 144/75 H 95 Room Air 4 02/24/25 08:00 02/24/25 08:00 02/24/25 08:00 02/24/25 08:00 02/24/25 08:00 02/24/25 08:00 02/21/25 20:14 Narrative Exam Physical Exam General: Awake and in no acute distress. Conversational and non-toxic appearing. HEENT: Normocephalic, atraumatic, extraocular movements intact, pupils equal and reactive to light. Oral mucosa dry. No obvious lesions in oropharynx. Heart: Regular rate and rhythm, no murmurs, rubs or gallops. Lungs: Lungs are clear to auscultation, respirations unlabored, no crackles, no wheezing. Abdomen: Soft, nondistended, nontender. No guarding or rebound tenderness. No CVA tenderness. Neurologic: Alert and oriented x1, no gross neurological deficit, and patient able to move all 4 extremities. Extremities: Lower extremity bilaterally enlarged with 1+ edema and tenderness to palpation, no cyanosis, no clubbing. Skin: Warm and dry without rashes. Psychiatric: Cooperative, flat affect. Objective Labs 02/25/25 05:00 02/25/25 05:00 Labs: Laboratory Results - last 24 hr 02/24/25 04:52 WBC 9.3 RBC 4.25 Hgb 13.3 Hct 39.0 MCV 92 MCH 31.3 MCHC 34.1 RDW Std Deviation 44.8 Plt Count 215 Neut % (Auto) 57 Lymph % (Auto) 31 [place] % (Auto) 9 Eos % (Auto) 3 Baso % (Auto) 1 Neut # (Auto) 5.3 Lymph # (Auto) 2.9 [place] # (Auto) 0.8 Eos # (Auto) 0.2 Baso # (Auto) 0.1 Immature Gran # (Auto) 0.03 H Absolute Nucleated RBC 0.00 Immature Gran % 0 Nucleated RBC % 0 Sodium 142 Potassium 4.0 Chloride 110 H Carbon Dioxide 22.4 Anion Gap 10 BUN 13 Creatinine 0.8 Estim Creat Clear Calc 59.2 L eGFR > 60 BUN/Creatinine Ratio 16 Glucose 85 Calculated Osmolality 282 Calcium 8.6 Corrected Calcium 8.7 Phosphorus 2.4 Magnesium 2.2 Total Bilirubin 0.6 AST 27 ALT 21 Alkaline Phosphatase 66 Total Protein 6.3 Albumin 3.9 Globulin 2.4 Albumin/Globulin Ratio 1.6 ABG Interpretation ABG results: 02/21/25 19:09 ABG pH 7.43 ABG pCO2 34 ABG pO2 87 ABG HCO3 22 ABG O2 Saturation 96 ABG Base Excess -1 Quality Measures Quality Measures VTE prophylaxis Advance care planning discussed with:: patient and other Assessment & Plan Assessment Current Active Medications: Generic Name Dose Route Start Last Admin Trade Name Freq PRN Reason Stop Dose Admin Acetaminophen 650 mg 02/21/25 22:27 Acetaminophen 325 Mg Tablet PO 03/23/25 22:26 Q6H PRN Fever >101.5 or pain 1-3 Enoxaparin Sodium 40 mg 02/22/25 09:00 02/24/25 08:49 Enoxaparin Sod Inj 40 Mg/0.4 Ml Syringe SC 03/08/25 08:59 40 mg QDAY JOCY Administration Meropenem 1,000 mg/ Sodium 50 mls @ 100 mls/hr 02/22/25 14:00 02/24/25 05:13 Chloride IV 03/01/25 13:59 100 mls/hr Q8HR JOCY Administration Ondansetron HCl 4 mg 02/21/25 22:27 Ondansetron Inj 2 Mg/Ml Inj 2 Ml IVP 03/23/25 22:26 Q6H PRN NAUSEA OR VOMITING Protocol Phenazopyridine HCl 100 mg 02/23/25 12:00 02/24/25 08:48 Phenazopyridine Hcl 100 Mg Tablet PO 02/25/25 08:01 100 mg TIDWM JOCY Administration Sennosides 1 tab 02/21/25 22:33 Senna/Docusate Sod 1 Tab Tablet PO 03/23/25 22:32 QDAY PRN CONSTIPATION Protocol Plan 84-year-old female with a history of recurrent UTIs, dementia, dysphagia, and depression who presented from [place] [facility] for altered mental status, admitted for acute encephalopathy likely secondary to UTI. #Acute encephalopathy, likely secondary to #Urinary tract infection #Rectal wall thickening #History of recurrent UTIs, likely secondary to #Bladder prolapse - Patient had acute change in mental status where the patient became less responsive as per her caregiver. - Caregiver notes a prior history of recurrent UTIs, with confusion occurring in the past during UTI episodes. - Urinalysis collected twice on 02/21, both specimens were noted to be contaminated, but significant white blood cells were observed, ranging from 1000 to 2000. - CT abdomen/pelvis (02/21) shows moderate renal scar formation with no hydronephrosis, severe cystitis pattern, rectal wall thickening, bladder prolapse. - Previous urine culture in 12/2018 identified ESBL-producing organisms. - Blood culture negative. - MRSA screen positive. Plan: * Meropenem 1000 mg IV Q8H due to the patient's prior history of ESBL (02/22 -). * Phenaopyridine for symptomatic relief of lower urinary tract discomfort. * Close monitoring of mental status and urinary symptoms. Continue to assess for further signs of infection or sepsis. * Plan to discharge with mupirocin for MRSA positive nares. * Recommend following-up with outpatient urologist for bladder prolapse seen on CTAP as it could be contributing to patient having recurrent UTIs. #Upper respiratory tract infection - Per nursing staff member at patient's nursing facility, patient was recent prescribed azithromycin 250 PO daily and prednisone 40 mg daily for an upper respiratory tract infection with wheezing. - CXR 02/21 unremarkable. - Likely viral in etiology as patient has no leukocytosis or fevers. Plan: * Supplemental oxygen via nasal cannula as needed. * Will treat with antibiotics being used for patient's UTI. #Hyperammonemia #Elevated LFT (resolved) - Patient noted to have slightly elevated ammonia on presentation, possibly contributing to the patient's altered mental status. - Additionally, the patient was noted to elevated AST on admission, but no other LFTs were noted to be elevated. - Ammonia on admission 37. - AST 35 on admission. - CT abdomen/pelvis on 02/21 negative for any cirrhosis or liver lesions Plan: * Patient was given lactulose 10 g x 1 in the ED. * Will reevaluate need for lactulose depending on patient's mental status. #Conserved - Patient is conserved by [facility] public guardian [phone], Eduardo Bill, who makes the major medical decisions for this patient. - Called the conservatorship regarding CODE STATUS, to which they mentioned that the patient is full code. Plan: * Reach out to [facility] public guardian if patient condition were to greatly decline for reevaluation of CODE STATUS. #History of dementia #History of depression #History of dysphagia - Patient does have a history of dementia, depression, and dysphagia. - Patient does not appear to take any medications for these conditions. - Per medical staff at the patient's nursing facility, the patient eats mechanically altered foods. Plan: * Dysphagia 2 diet, mechanically altered ordered. * Aspiration precautions. Health Maintenance Disposition: med surg, meropenem for UTI, pending urine culture. DVT prophylaxis: Lovenox GI prophylaxis: N/A Last BM: 02/23. Diet: Dysphagia 2 [place]: N/A Lines: Peripheral IV CODE STATUS: FULL --- Patient plan of care was discussed with the senior resident, Dr. Dee, and attending physician, Dr. Vazquez. Carlitos Ordonez DO PGY-1 Attending Provider Attestation/Addendum Deshawn, Daniela Vazquez DO, attest that I was physically present for the carmona portions of the service and evaluated the patient with the resident and I reviewed and discussed the case with the resident and agree with the resident's findings and plans of care as documented above Patient seen and evaluated this AM. She states she is feeling well and no complaints at this time. Daughter is at bedside. Explained to patient that the reason for recurrent UTI likely due to pelvic laxity as noted on CT abd/pelvis. Recommend for patient to f/u with urologist or urogynecologist. F/u with urine cultures. She has had hx of ESBL UTI. She remains on meropenem at this time.
[2025-02-24] MEDS: guaiFENesin SYRUP 200 MG/10 ML UDC 100 MG PO ×3 (11:35→20:39)
--- NOTE | 2025-02-24 13:55 | PC.SS ---
Updated clinicals submitted to Angela at [facility] via [facility]
--- NOTE | 2025-02-24 14:24 | PC.SS ---
Rounding: Pending UA cults on IV ABX, DC plan back to [facility]
[2025-02-25] VITALS (7 sets, daily range): BP systolic 124–153; BP diastolic 71–84; PULSE 57–85; RESP 16–97; TEMP 36.1–37.1; O2SAT 94–97
[2025-02-25 06:13] LABS: Basophils # (Auto) 0.1 Thou/mm3 (0.0-0.2); Basophils % (Auto) 1 % (0-2.5); Eosinophils # (Auto) 0.4 Thou/mm3 (0.0-0.5); Eosinophils % (Auto) 4 % (0-10); Hematocrit 39.7 % (36.0-46.0); Hemoglobin 13.2 g/dL (12.0-16.0); Immature Granulocytes Auto 0.03 Thou/mm3 (0.00-0.00); Lymphocytes # (Auto) 3.4 Thou/mm3 (1.0-4.8); Lymphocytes % (Auto) 40 % (10-50); Mean Corpuscular HGB Conc 33.2 g/dl (31.0-37.0); Mean Corpuscular Hemoglobin 31.1 pg (25.0-35.0); Mean Corpuscular Volume 94 fL (80-100); Monocytes # (Auto) 0.8 Thou/mm3 (0.0-0.8); Monocytes % (Auto) 9 % (0-12); Neutrophils # (Auto) 3.8 Thou/mm3 (1.8-7.7); Neutrophils % (Auto) 45 % (37-80); Nucleated Red Blood Cell # 0.00 Thou/mm3 (0.00-0.00); Nucleated Red Blood Cell % 0 /100 WBC (0); Platelet Count 210 Thou/mm3 (140-440); RDW Standard Deviation 44.4 fL (36.4-46.3); Red Blood Count 4.24 Miln/mm3 (4.00-5.20); White Blood Count 8.5 Thou/mm3 (3.6-11.0)
[2025-02-25 06:48] LABS: Alanine Aminotransferase 19 U/L (10-49); Albumin, Serum 3.7 gm/dL (3.4-4.8); Albumin/Globulin Ratio 1.6 (1.2-2.2); Alkaline Phosphatase 63 U/L (46-116); Anion Gap 9 (7-16); Aspartate Amino Transferase 24 U/L (0-34); BUN/Creatinine Ratio 14 Ratio (12-20); Bilirubin,Total 0.6 mg/dL (0.3-1.2); Blood Urea Nitrogen 13 mg/dL (9-23); Calcium 8.5 mg/dL (8.3-10.6); Calcium (Corrected) 8.7 mg/dL (8.5-10.1); Carbon Dioxide 22.9 mMol/L (20.0-31.0); Chloride 112 mMol/L (98-107); Creatinine (Component) 0.9 mg/dL (0.6-1.3); Estimated Creatinine Clearance 52.7 mL/min (>60); Globulin 2.3 gm/dL (2.3-3.5); Glucose 83 mg/dL (74-106); Magnesium 2.1 mg/dL (1.6-2.6); Osmolality,Calculated 285 (275-295); Phosphorous 2.5 mg/dL (2.4-5.1); Potassium 4.0 mMol/L (3.4-5.1); Sodium 144 mMol/L (136-145); Total Protein 6.0 gm/dL (5.7-8.2); eGFR > 60 See Note
[2025-02-25] MEDS: guaiFENesin SYRUP 200 MG/10 ML UDC 100 MG PO ×4 (06:53→21:16)
[2025-02-25] MEDS: MEROPENEM INJ 1,000 MG in SODIUM CHLORIDE 0.9% (Popper) 50 ML 100 MG IV ×3 (06:54→23:16)
[2025-02-25] MEDS: ENOXAPARIN SOD INJ 40 MG/0.4 ML SYRINGE SC (08:07)
[2025-02-25] MEDS: PHENAZOPYRIDINE HCL 100 MG TABLET PO (08:08)
--- NOTE | 2025-02-25 12:33 | PC.SS ---
SS received a call from Joo Ordonez, he explained family would like new placement for patient. Informed Dr. Ordonez Medical Surrogate Decision Maker is [facility] Derrick Worker Eduardo [phone]. Patient to return to [facility] when medically clear. Per previous SS, Lorin stated family is to not receive any medical updates or should be speaking with physician team requesting meetings. If family continues requesting to speak to team or requesting meetings, inform Eduardo.
--- NOTE | 2025-02-25 13:28 | ESPR_ITS ---
Documentation for date of: 02/25/25 Subjective Subjective Interval history: No acute events overnight. The patient was seen at the bedside this morning resting comfortably and reports no complaints. Urine culture is negative. Will continue meropenem for one additional day to complete UTI treatment given the patient?s history of MDR UTIs. Continue Robitussin for cough. Anticipate discharge tomorrow. Exam Vital Signs Temp Pulse Resp BP Pulse Ox O2 Del Method O2 Flow Rate 97.4 F 63 20 137/83 H 94 L Room Air 4 02/25/25 12:00 02/25/25 12:00 02/25/25 12:00 02/25/25 12:00 02/25/25 12:00 02/25/25 12:00 02/25/25 12:00 Narrative Exam Physical Exam General: Awake and in no acute distress. Conversational and non-toxic appearing. HEENT: Normocephalic, atraumatic, extraocular movements intact, pupils equal and reactive to light. Oral mucosa dry. No obvious lesions in oropharynx. Heart: Regular rate and rhythm, no murmurs, rubs or gallops. Lungs: Lungs are clear to auscultation, respirations unlabored, no crackles, no wheezing. Abdomen: Soft, nondistended, nontender. No guarding or rebound tenderness. No CVA tenderness. Neurologic: Alert and oriented x1, no gross neurological deficit, and patient able to move all 4 extremities. Extremities: Lower extremity bilaterally enlarged with 1+ edema and tenderness to palpation, no cyanosis, no clubbing. Skin: Warm and dry without rashes. Psychiatric: Cooperative, flat affect. Objective Labs 02/25/25 05:00 02/25/25 05:00 Labs: Laboratory Results - last 24 hr 02/25/25 05:00 WBC 8.5 RBC 4.24 Hgb 13.2 Hct 39.7 MCV 94 MCH 31.1 MCHC 33.2 RDW Std Deviation 44.4 Plt Count 210 Neut % (Auto) 45 Lymph % (Auto) 40 [place] % (Auto) 9 Eos % (Auto) 4 Baso % (Auto) 1 Neut # (Auto) 3.8 Lymph # (Auto) 3.4 [place] # (Auto) 0.8 Eos # (Auto) 0.4 Baso # (Auto) 0.1 Immature Gran # (Auto) 0.03 H Absolute Nucleated RBC 0.00 Immature Gran % 0 Nucleated RBC % 0 Sodium 144 Potassium 4.0 Chloride 112 H Carbon Dioxide 22.9 Anion Gap 9 BUN 13 Creatinine 0.9 Estim Creat Clear Calc 52.7 L eGFR > 60 BUN/Creatinine Ratio 14 Glucose 83 Calculated Osmolality 285 Calcium 8.5 Corrected Calcium 8.7 Phosphorus 2.5 Magnesium 2.1 Total Bilirubin 0.6 AST 24 ALT 19 Alkaline Phosphatase 63 Total Protein 6.0 Albumin 3.7 Globulin 2.3 Albumin/Globulin Ratio 1.6 ABG Interpretation ABG results: 02/21/25 19:09 ABG pH 7.43 ABG pCO2 34 ABG pO2 87 ABG HCO3 22 ABG O2 Saturation 96 ABG Base Excess -1 Quality Measures Quality Measures VTE prophylaxis Advance care planning discussed with:: patient Assessment & Plan Assessment Current Active Medications: Generic Name Dose Route Start Last Admin Trade Name Freq PRN Reason Stop Dose Admin Acetaminophen 650 mg 02/21/25 22:27 Acetaminophen 325 Mg Tablet PO 03/23/25 22:26 Q6H PRN Fever >101.5 or pain 1-3 Enoxaparin Sodium 40 mg 02/22/25 09:00 02/25/25 08:07 Enoxaparin Sod Inj 40 Mg/0.4 Ml Syringe SC 03/08/25 08:59 40 mg QDAY JOCY Administration Guaifenesin 100 mg 02/24/25 12:00 02/25/25 12:56 Guaifenesin Syrup 200 Mg/10 Ml Udc PO 03/26/25 11:59 100 mg QID JOCY Administration Protocol Meropenem 1,000 mg/ Sodium 50 mls @ 100 mls/hr 02/22/25 14:00 02/25/25 13:10 Chloride IV 03/01/25 13:59 100 mls/hr Q8HR JOCY Administration Ondansetron HCl 4 mg 02/21/25 22:27 Ondansetron Inj 2 Mg/Ml Inj 2 Ml IVP 03/23/25 22:26 Q6H PRN NAUSEA OR VOMITING Protocol Sennosides 1 tab 02/21/25 22:33 Senna/Docusate Sod 1 Tab Tablet PO 03/23/25 22:32 QDAY PRN CONSTIPATION Protocol Plan 84-year-old female with a history of recurrent UTIs, dementia, dysphagia, and depression who presented from [facility] for altered mental status, admitted for acute encephalopathy likely secondary to UTI. #Acute encephalopathy, likely secondary to #Urinary tract infection #Rectal wall thickening #History of recurrent UTIs, likely secondary to #Bladder prolapse/Pelvic laxity - Patient had acute change in mental status where the patient became less responsive as per her caregiver. - Caregiver notes a prior history of recurrent UTIs, with confusion occurring in the past during UTI episodes. - Urinalysis collected twice on 02/21, both specimens were noted to be contaminated, but significant white blood cells were observed, ranging from 1000 to 2000. - CT abdomen/pelvis (02/21) shows moderate renal scar formation with no hydronephrosis, severe cystitis pattern, rectal wall thickening, bladder prolapse. - Previous urine culture in 12/2018 identified ESBL-producing organisms. - Blood culture negative. - MRSA screen positive. - Urine culture 02/21: no growth. Plan: * Meropenem 1000 mg IV Q8H due to the patient's prior history of ESBL (02/22 - 02/26). * Phenaopyridine for symptomatic relief of lower urinary tract discomfort. * Close monitoring of mental status and urinary symptoms. Continue to assess for further signs of infection or sepsis. * Plan to discharge with mupirocin for MRSA positive nares. * Pelvic laxity was noted on CT abdomen/pelvis. Recommend outpatient follow-up with urology or urogynecology, as this may be contributing to the patient?s recurrent UTIs. #Upper respiratory tract infection - Per nursing staff member at patient's nursing facility, patient was recent prescribed azithromycin 250 PO daily and prednisone 40 mg daily for an upper respiratory tract infection with wheezing. - CXR 02/21 unremarkable. - Likely viral in etiology as patient has no leukocytosis or fevers. Plan: * Supplemental oxygen via nasal cannula as needed. * Will treat with antibiotics being used for patient's UTI. * Continue robitussin for cough. #Hyperammonemia #Elevated LFT (resolved) - Patient noted to have slightly elevated ammonia on presentation, possibly contributing to the patient's altered mental status. - Additionally, the patient was noted to elevated AST on admission, but no other LFTs were noted to be elevated. - Ammonia on admission 37. - AST 35 on admission. - CT abdomen/pelvis on 02/21 negative for any cirrhosis or liver lesions Plan: * Patient was given lactulose 10 g x 1 in the ED. * Will reevaluate need for lactulose depending on patient's mental status. #Conserved - Patient is conserved by [facility] public guardian [phone], Eduardo Bill, who makes the major medical decisions for this patient. - Called the conservatorship regarding CODE STATUS, to which they mentioned that the patient is full code. Plan: * Reach out to [facility] public guardian if patient condition were to greatly decline for reevaluation of CODE STATUS. #History of dementia #History of depression #History of dysphagia - Patient does have a history of dementia, depression, and dysphagia. - Patient does not appear to take any medications for these conditions. - Per medical staff at the patient's nursing facility, the patient eats mechanically altered foods. Plan: * Dysphagia 2 diet, mechanically altered ordered. * Aspiration precautions. Health Maintenance Disposition: med surg, meropenem for UTI, anticipate discharge on 02/26. GI prophylaxis: N/A Diet: Dysphagia 2 Boy[place]: N/A Lines: Peripheral IV CODE STATUS: FULL --- Patient plan of care was discussed with attending physician, Dr. Vazquez. Carlitos Ordonez DO PGY-1 Attending Provider Attestation/Addendum Daniela Hess DO, attest that I was physically present for the carmona portions of the service and evaluated the patient with the resident and I reviewed and discussed the case with the resident and agree with the resident's findings and plans of care as documented above Patient seen and evaluated this AM. Patient is resting comfortably. Urine culture was negative, but pt was also previously on abx prior to arrival. Will continue with one more day of meropenem as patient had significanty pyuria noted on UA. She has also clinically improved. Anticipate DC within the next 24h.
[2025-02-26] VITALS: BP 130/70; PULSE 69; RESP 16; TEMP 36.6; O2SAT 93
[2025-02-26 04:00] VITALS: BP 129/69; PULSE 71; RESP 16; TEMP 36.4; O2SAT 95
[2025-02-26] MEDS: MEROPENEM INJ 1,000 MG in SODIUM CHLORIDE 0.9% (Popper) 50 ML 100 MG IV (05:52)
[2025-02-26] MEDS: guaiFENesin SYRUP 200 MG/10 ML UDC 100 MG PO ×2 (05:52→11:10)
[2025-02-26 06:47] LABS: Basophils # (Auto) 0.1 Thou/mm3 (0.0-0.2); Basophils % (Auto) 1 % (0-2.5); Eosinophils # (Auto) 0.5 Thou/mm3 (0.0-0.5); Eosinophils % (Auto) 5 % (0-10); Hematocrit 43.0 % (36.0-46.0); Hemoglobin 14.5 g/dL (12.0-16.0); Immature Granulocytes Auto 0.05 Thou/mm3 (0.00-0.00); Lymphocytes # (Auto) 3.5 Thou/mm3 (1.0-4.8); Lymphocytes % (Auto) 36 % (10-50); Mean Corpuscular HGB Conc 33.7 g/dl (31.0-37.0); Mean Corpuscular Hemoglobin 31.2 pg (25.0-35.0); Mean Corpuscular Volume 93 fL (80-100); Monocytes # (Auto) 0.9 Thou/mm3 (0.0-0.8); Monocytes % (Auto) 10 % (0-12); Neutrophils # (Auto) 4.5 Thou/mm3 (1.8-7.7); Neutrophils % (Auto) 48 % (37-80); Nucleated Red Blood Cell # 0.00 Thou/mm3 (0.00-0.00); Nucleated Red Blood Cell % 0 /100 WBC (0); Platelet Count 253 Thou/mm3 (140-440); RDW Standard Deviation 43.9 fL (36.4-46.3); Red Blood Count 4.65 Miln/mm3 (4.00-5.20); White Blood Count 9.5 Thou/mm3 (3.6-11.0)
[2025-02-26 07:49] LABS: Anion Gap 13 (7-16); Calcium 8.8 mg/dL (8.3-10.6); Carbon Dioxide 19.7 mMol/L (20.0-31.0); Chloride 110 mMol/L (98-107); Potassium 4.3 mMol/L (3.4-5.1); Sodium 143 mMol/L (136-145)
[2025-02-26 07:56] LABS: Alanine Aminotransferase 17 U/L (10-49); Albumin, Serum 3.9 gm/dL (3.4-4.8); Albumin/Globulin Ratio 1.6 (1.2-2.2); Alkaline Phosphatase 65 U/L (46-116); Aspartate Amino Transferase 28 U/L (0-34); BUN/Creatinine Ratio 13 Ratio (12-20); Bilirubin,Total 0.6 mg/dL (0.3-1.2); Blood Urea Nitrogen 10 mg/dL (9-23); Calcium (Corrected) 8.9 mg/dL (8.5-10.1); Creatinine (Component) 0.8 mg/dL (0.6-1.3); Estimated Creatinine Clearance 59.2 mL/min (>60); Globulin 2.5 gm/dL (2.3-3.5); Glucose 83 mg/dL (74-106); Magnesium 2.0 mg/dL (1.6-2.6); Osmolality,Calculated 282 (275-295); Phosphorous 2.1 mg/dL (2.4-5.1); Total Protein 6.4 gm/dL (5.7-8.2); eGFR > 60 See Note
[2025-02-26 08:00] VITALS: BP 123/70; PULSE 66; RESP 16; TEMP 36.5; O2SAT 95
[2025-02-26] MEDS: ENOXAPARIN SOD INJ 40 MG/0.4 ML SYRINGE SC (08:17)
[2025-02-26] MEDS: NAPH,KPH MBDB 1 PACKET (1.5 GM) PO (09:04)
--- NOTE | 2025-02-26 10:21 | ESDS_ITS ---
<Statement entered by Shahab Rojas MD - 03/03/25 08:34> I reviewed above note and agree with findings and plans. I have also personally examined the patient with medicine team and went over assessment and plan with medical team including creative intern and resident physician. Planned Discharge Date 02/26/25 DS: Providers Provider Date of admission: 02/21/25 22:27 Primary care physician: Marielle Albarado MD Admitting Provider: Mitchel Jurado MD Attending Provider on Admission: Mitchel Jurado MD Consults: 02/21/25 22:51 PT [Referral Physical Therapy] Routine Comment: Physician Instructions: Attending Provider on DC: Shahab Rojas MD Discharging Provider: Duane Rodriguez MD DS: Diagnosis Problem List Completed Was Problem List Reviewed/Reconciled?: Yes Hospital Course Hospital Course Hospital course: 84-year-old female with a history of recurrent urinary tract infections, dementia, dysphagia, and depression presented on 02/21 from [facility] [place] with acute altered mental status. She was admitted for management of acute encephalopathy, likely secondary to urinary tract infection. On presentation, the patient was significantly less responsive per caregiver report. Initial evaluation including CT head, chest X-ray, and laboratory studies showed no acute intracranial or metabolic etiology. Over the course of hospitalization, her mental status returned to baseline (alert to self and place), consistent with prior episodes of UTI-associated encephalopathy per caregiver. Urinalysis was contaminated but showed marked pyuria. CT abdomen/pelvis revealed severe cystitis, moderate renal scarring, rectal wall thickening, and bladder prolapse/pelvic laxity, which may be contributing to recurrent UTIs. Given prior history of ESBL-producing organisms, antibiotics were escalated from Zosyn to Meropenem, which she completed during hospitalization. Blood cultures remained negative and urine culture showed no growth. MRSA nares screen was positive. Her hospital course was otherwise notable for a mild upper respiratory infection (likely viral), transient mild hyperammonemia and AST elevation that resolved after a single dose of lactulose, and a nonproductive cough treated symptomatically. The patient remained hemodynamically stable with no further episodes of encephalopathy and was deemed medically stable for discharge. Diagnosis during admission: #Acute encephalopathy #Recurrent urinary tract infections #History of ESBL #Bladder prolapse/pelvic laxity #Dementia #Dysphagia #Upper respiratory infection, likely viral #MRSA colonization (nares) Discharge instructions: * Follow-up with PCP within 1-2 weeks of discharge. * Apply MUPIROCIN nasal ointment twice daily to each nostril for 5-10 days for decolonization of MRSA bacteria. * Continue taking medications as prescribed below. * Return to Emergency Room if symptoms persist, worsen, or new symptoms develop. ----- Plan discussed with attending physician Dr. Crystal Rodriguez MD PGY-1 Internal Medicine Time Spent with Patient Time attestation: Total time spent providing and/or coordinating discharge services: Time spent: Greater than 30 minutes Exam Vital Signs Temp Pulse Resp BP Pulse Ox O2 Del Method O2 Flow Rate 97.7 F 66 16 123/70 95 Room Air 4 02/26/25 08:00 02/26/25 08:00 02/26/25 08:00 02/26/25 08:00 02/26/25 08:00 02/26/25 08:00 02/25/25 12:00 Narrative Exam Physical Exam General: Awake and in no acute distress. Conversational and non-toxic appearing. HEENT: Normocephalic, atraumatic, extraocular movements intact, pupils equal and reactive to light. Oral mucosa dry. No obvious lesions in oropharynx. Heart: Regular rate and rhythm, no murmurs, rubs or gallops. Lungs: Lungs are clear to auscultation, respirations unlabored, no crackles, no wheezing. Abdomen: Soft, nondistended, nontender. No guarding or rebound tenderness. No CVA tenderness. Neurologic: Alert and oriented x1, no gross neurological deficit, and patient able to move all 4 extremities. Extremities: Lower extremity bilaterally enlarged with 1+ edema and tenderness to palpation, no cyanosis, no clubbing. Skin: Warm and dry without rashes. Psychiatric: Cooperative, flat affect. Discharge Plan Plan Patient Disposition: Xfer Skilled Nsg Fac (SNF) Care Plan Goals: * Follow-up with PCP within 1-2 weeks of discharge. * Apply MUPIROCIN nasal ointment twice daily to each nostril for 5-10 days for decolonization of MRSA bacteria. * Continue taking medications as prescribed below. * Return to Emergency Room if symptoms persist, worsen, or new symptoms develop. Prescriptions/Referrals Prescriptions/Med Rec: New mupirocin [Centany] 2 % ointment 1 applic topical BID 10 Days Qty: 15 0RF Continued ondansetron 4 mg tablet,disintegrating 4 mg PO Q12H PRN (Reason: nausea and vomiting) melatonin 5 mg capsule 5 mg PO HS Discontinued azithromycin 250 mg tablet 250 mg PO DAILY prednisone 20 mg tablet 40 mg PO DAILY Rx Instructions: Day 1 for 4 days. Referrals: Marielle Albarado MD [Primary Care Provider] Patient/Caregiver Discharge Instructions Print Language: Kazakh Stand Alone Forms: Shira Award Info., Patient Portal Info Letter Discharge Order Discharge Orders: Discharge (Routine); Ordered 02/26/25 Ordered By: Duane Rodriguez Quality Discharge Quality Measures VTE prophylaxis
--- NOTE | 2025-02-26 11:38 | PC.SS ---
Addendum entered by Elaine Valerio 02/26/25 12:41: GOGO Middleton and Cate informed transport is set for 1400 with [facility] to [facility]. Addendum entered by Elaine Valerio 02/26/25 12:29: Attempted to obtain auth. from [employer] [id number], informed by Grace patient's account is inactive and transportation cannot be covered. Transportation not available by SNF. JOE obtained. [facility] [phone] contacted, Yarelis scheduled transportation for 1400 via [facility]. Covering RIGO Jessica and Angela PAYAN informed of ETA 1400. Environmental Engineering Manager's office contacted [phone], Brianda was informed of patient discharging to [facility] at 1400. Brianda stated she'd provide message to supportive employment case manager Eduardo. Original Note: Informed by SHARIF Fuller and RIGO Chowdary patient is ready for discharge. Contacted Angela-GPA to inform her;Angela stated she can receive patient today. Transportation setup pending.
[2025-02-26 12:00] VITALS: BP 115/63; PULSE 68; RESP 17; TEMP 36.4; O2SAT 93
== END 2025-02-26 14:00 | disposition skilled nursing facility (03) | DRG 690 ==
LOC: SERX 18:29 → SERHOLD 23:07 → S3SX 02-22 00:26
PROVIDERS: Admitting Provider Student in an Organized Health Care Education/Training Program; Emergency Provider Emergency Medicine; PCP Hospitalist; Visit Provider Student in an Organized Health Care Education/Training Program
DX: N39.0 Urinary tract infection, site not specified (principal); G93.40 Encephalopathy, unspecified; E72.20 Disorder of urea cycle metabolism, unspecified; Z87.440 Personal history of urinary (tract) infections; F03.90 Unspecified dementia, unspecified severity, without behavioral disturbance, psychotic disturbance, mood disturbance, and anxiety; J06.9 Acute upper respiratory infection, unspecified; F32.A Depression, unspecified; R13.10 Dysphagia, unspecified; Z22.322 Carrier or suspected carrier of Methicillin resistant Staphylococcus aureus; N81.10 Cystocele, unspecified; Z86.19 Personal history of other infectious and parasitic diseases
CPT/HCPCS: 36415; 36600; 51701; 70450; 71045; 74176; 80053; 81001; 82140; 82803; 83605; 83615; 83690; 83735; 83880; 84100; 84145; 84484; 85025; 85610; 85730; 87040; 87081; 87086; 87502; 87634; 87635; 93005; 93225; 93970; 96374; 97163; 99285; J0696; J1650; J2185; J2543; J3475; J7050; A9270